=== PATIENT | male | born 1950 | race Caucasian/White ===

== ENCOUNTER 2016-07-18 15:05 | Outpatient (CLI) | payer MEDICARE ==
[2016-07-18 15:56] LABS: #Basophils 0.1 thou/uL (0.0-0.2); #Eosinphils 0.3 thou/uL (0.0-0.7); #Lymphocytes 1.2 thou/uL (1.20-3.40); #Monocytes 0.4 thou/uL (0.11-0.59); #Neutrophils 3.9 thou/uL (1.40-6.50); %Basophils 1.2 % (0.0-1.0); %Eosinophils 4.6 % (0.0-10.0); %Lymphocytes 20.9 % (21.0-51.0); %Monocytes 7.1 % (0.0-10.0); %Neutrophils 66.1 % (42.0-75.0); Hemoglobin 16.2 g/dL (14.0-18.0); Mean Corpuscular HGB CONC 34.6 g/dL (32.0-36.0); Mean Corpuscular Hemoglobin 30.8 pg (27.0-31.0); Mean Platelet Volume 11.9 fL (7.4-10.4); Platelet Count 127 thou/uL (130-400); RBC Distribution Width 13.2 % (11.5-14.5); Red Blood Cell (RBC) Count 5.26 mill/uL (4.70-6.10); White Blood Cell (WBC) Count 5.8 thou/uL (4.8-10.8)
[2016-07-18 16:09] LABS: ALT (SGPT) 38 U/L (8-55); AST (SGOT) 24 U/L (5-34); Albumin 4.1 g/dL (3.4-4.8); Alkaline Phosphatase 53 U/L (40-150); Anion Gap 14 mmol/L (10-20); BUN (Urea Nitrogen) 22 mg/dL (8.4-25.7); Bilirubin, Total 0.9 mg/dL (0.2-1.2); Calc. Creatinine Clearance 0 mL/min (70-130); Calcium 9.6 mg/dL (7.8-10.44); Carbon Dioxide 27 mmol/L (23-31); Cardiac Risk 7.9 (Less than 4.5); Chloride 105 mmol/L (98-107); Cholesterol 275 mg/dl (< 200 Desired); Estimated GFR-MDRD 45; Globulin 2.7 g/dL (2.4-3.5); Glucose 122 mg/dL (80-115); HDL Cholesterol 35 mg/dL (>60 Neg Risk); LDL Cholesterol, Calculated 203 mg/dL; Potassium 4.8 mmol/L (3.5-5.1); Protein, Total 6.8 g/dL (5.8-8.1); Sodium 141 mmol/L (136-145); Triglycerides 184 mg/dL (Less than 150)
[2016-07-18 16:11] LABS: Hemoglobin A1c 6.1 % (4.0-6.0)
[2016-07-19 19:18] LABS: Creatinine, Urine 118.47 mg/dL (63-166); Microalbumin Urine Less than 1.0 mg/dL (0.5-50.0); Microalbumin/Creat Ratio 8.4 mg/g (Less than 30)
== END 2016-07-18 15:06 | disposition home or self-care (01) ==
LOC: HPCALD 15:05
PROVIDERS: ATTEND Family Medicine
DX: E11.29 Type 2 diabetes mellitus with other diabetic kidney complication (principal)
CPT/HCPCS: 36415; 80053; 80061; 82043; 83036; 84443; 85025

== ENCOUNTER 2016-10-02 19:36 | Emergency (ER) | payer MEDICARE ==
[2016-10-02 20:12] LABS: #Basophils 0.1 thou/uL (0.0-0.2); #Eosinphils 0.2 thou/uL (0.0-0.7); #Monocytes 0.6 thou/uL (0.11-0.59); #Neutrophils 9.9 thou/uL (1.40-6.50); %Basophils 0.8 % (0.0-1.0); %Eosinophils 1.7 % (0.0-10.0); %Lymphocytes 8.1 % (21.0-51.0); %Monocytes 5.3 % (0.0-10.0); %Neutrophils 84.1 % (42.0-75.0); Hemoglobin 17.9 g/dL (14.0-18.0); Mean Corpuscular HGB CONC 33.8 g/dL (32.0-36.0); Mean Corpuscular Hemoglobin 30.7 pg (27.0-31.0); Mean Corpuscular Volume 90.8 fl (80.0-94.0); Mean Platelet Volume 11.4 fL (7.4-10.4); Platelet Count 185 thou/uL (130-400); RBC Distribution Width 13.2 % (11.5-14.5); Red Blood Cell (RBC) Count 5.84 mill/uL (4.70-6.10); White Blood Cell (WBC) Count 11.8 thou/uL (4.8-10.8)
[2016-10-02 20:20] LABS: INR-International Normal Ratio 1.2; PTT 26.4 SEC (22.9-36.1); Prothrombin Time 14.9 SEC (12.0-14.7)
[2016-10-02 20:26] LABS: ALT (SGPT) 41 U/L (8-55); AST (SGOT) 25 U/L (5-34); Albumin 4.9 g/dL (3.4-4.8); Alkaline Phosphatase 63 U/L (40-150); Anion Gap 19 mmol/L (10-20); BUN (Urea Nitrogen) 23 mg/dL (8.4-25.7); Bilirubin, Total 1.3 mg/dL (0.2-1.2); Calc. Creatinine Clearance 0 mL/min (70-130); Carbon Dioxide 23 mmol/L (23-31); Chloride 103 mmol/L (98-107); Estimated GFR-MDRD 22; Globulin 3.5 g/dL (2.4-3.5); Glucose 166 mg/dL (80-115); Lipase 22 U/L (8-78); Potassium 4.3 mmol/L (3.5-5.1); Protein, Total 8.4 g/dL (5.8-8.1); Sodium 141 mmol/L (136-145)
[2016-10-02 20:27] LABS: CKMB 2.5 ng/mL (0-6.6); Troponin I Less than 0.010 ng/mL (< 0.028)
[2016-10-02 20:29] LABS: D-Dimer Test 0.28 *mcg/mL (0.27-0.43)
--- NOTE | 2016-10-02 20:32 | RAD ---
EXAM: ONE VIEW CHEST 10/02/16 HISTORY: Syncope. COMPARISON: 10/17/11 FINDINGS: Normal cardiac silhouette. Pulmonary vessels and hilum are normal. No mass or consolidation. No pneu mothorax or osseous abnormalities. Cervical fusion hardware is noted. IMPRESSION: No acute cardiopulmonary process. POS: [facility]
--- NOTE | 2016-10-02 20:59 | CT ---
EXAM: NONCONTRAST CT HEAD 10/02/16 HISTORY: Syncope. Patient passed out. Posttraumatic pain. COMPARISON: 11/20/12 TECHNIQUE: Noncontrast head CT is performed from skull base to skull vertex. FINDINGS: No parenchymal hemorrhage. No extra-axial hematoma. No midline shift. Basilar cisterns are patent. B rain volume is age appropriate. Cortical fernandes-white matter differentiation is preserved. Ventricles and sulci are patent and symmetric. Calvarium is intact. Adequate aeration of the sinuses and mastoid air cells. IMPRESSION: No intracranial posttraumatic sequela. POS: [facility]
--- NOTE | 2016-10-02 22:08 | CT ---
EXAM: CERVICAL SPINE CT WITHOUT CONTRAST 10/02/16 HISTORY: Fall. Syncope. Posttraumatic pain. COMPARISON: 10/21/12 TECHNIQUE: A cervical spine CT is performed without contrast. reformatted images are submitted for interpretati on. FINDINGS: Redemonstration of anterior fusion plate with transvertebral body screw at C6 and C7. There is no pe rihardware lucency. There is fusion of the cervical spine at C4, C5, C6 and C7. Straightening of the normal cervical lordosis is noted. Grade I anterolisthesis of C3 upon C5 and C7 upon T1 is redemons trated. Coronal reformatted images demonstrate appropriate alignment of the lateral masses of C1 and C2. There is appropriate alignment of the intra-articular facets. Odontoid process is intact. There is no prevertebral soft tissue swelling or epidural hematoma. Varying degrees of central canal stenosis and foraminal narrowing on the basis of degenerative change. Limited evaluation by techniq ue. The visualized soft tissue neck structures, upper mediastinum and lung apices are unremarkable. Base d on the axial images, cervical spine vertebral body height is maintained. No fracture. IMPRESSION: 1. Uncomplicated cervical fusion. 2. Extensive fusion changes of the cervical spine, similar to the prior examination. 3. No cervical spine fracture. POS: [facility]
== END 2016-10-02 23:10 | disposition home or self-care (01) ==
LOC: BURERS 19:36
DX: E86.0 Dehydration (principal); R55 Syncope and collapse; E78.5 Hyperlipidemia, unspecified; I10 Essential (primary) hypertension; E11.9 Type 2 diabetes mellitus without complications; G62.9 Polyneuropathy, unspecified
CPT/HCPCS: 36416; 70450; 71010; 72125; 80053; 82553; 83605; 83690; 83880; 84484; 85025; 85379; 85610; 85730; 87040; 93005; 94760

== ENCOUNTER 2016-10-25 09:39 | Outpatient (CLI) | payer MEDICARE ==
[2016-10-25 10:33] LABS: Hemoglobin A1c 6.4 % (4.0-6.0)
[2016-10-25 10:35] LABS: ALT (SGPT) 45 U/L (8-55); AST (SGOT) 22 U/L (5-34); Albumin 4.1 g/dL (3.4-4.8); Alkaline Phosphatase 60 U/L (40-150); Anion Gap 14 mmol/L (10-20); BUN (Urea Nitrogen) 15 mg/dL (8.4-25.7); Bilirubin, Total 0.7 mg/dL (0.2-1.2); Calc. Creatinine Clearance 0 mL/min (70-130); Calcium 9.4 mg/dL (7.8-10.44); Carbon Dioxide 26 mmol/L (23-31); Cardiac Risk 7.1 (Less than 4.5); Chloride 105 mmol/L (98-107); Cholesterol 263 mg/dl (< 200 Desired); Estimated GFR-MDRD 50; Globulin 2.5 g/dL (2.4-3.5); Glucose 155 mg/dL (80-115); HDL Cholesterol 37 mg/dL (>60 Neg Risk); LDL Cholesterol, Calculated 177 mg/dL; Protein, Total 6.6 g/dL (5.8-8.1); Sodium 141 mmol/L (136-145); Triglycerides 247 mg/dL (Less than 150)
== END 2016-10-25 09:40 | disposition home or self-care (01) ==
LOC: HPCALD 09:39
PROVIDERS: ATTEND Family Medicine
DX: E11.29 Type 2 diabetes mellitus with other diabetic kidney complication (principal); E78.2 Mixed hyperlipidemia
CPT/HCPCS: 36415; 80053; 80061; 83036

== ENCOUNTER 2018-05-12 11:10 | Emergency (ER) | payer MEDICARE, OTHER ==
[2018-05-12] MEDS ORDERED: Adacel (T-DAP) 0.5 ML SYRINGE ONE (12:10)
[2018-05-12] MEDS ORDERED: Ketorolac Tromethamine 60 MG/2 ML VIAL ONE (12:10)
--- NOTE | 2018-05-12 12:10 | RAD ---
FXR Hand Lt 3 View STANDARD: 05/12/2018 11:28 AM CLINICAL INDICATION: Left hand pain COMPARISON: None. TECHNIQUE: 3 views of the left hand. Laterality: Left. FINDINGS: Bones: No acute osseous abnormality There are small subchondral cystlike abnormalities involving the proximal scaphoid, capitate and triquetrum. Joints: There are periarticular erosions involving the IP joints of the index through small finger. T here are suspected. The periarticular erosive changes involving the index and long finger metacarpal. Soft Tissue: . IMPRESSION: No acute fracture or subluxation. Scattered periarticular erosions of the left hand may reflect seque la of an underlying inflammatory arthropathy..
--- NOTE | 2018-05-12 12:12 | RAD ---
FChest AP view INDICATION: Chest pain COMPARISON: October 02, 2016 FINDINGS: The lungs are clear. The heart size is normal. No pleural effusion or pneumothorax is evide nt. No acute osseous abnormality is noted. IMPRESSION: No acute cardiopulmonary abnormality.
--- NOTE | 2018-05-12 12:38 | CT ---
CT OF BRAIN PERFORMED WITHOUT CONTRAST ENHANCEMENT: Date: 05/12/18 HISTORY: Head injury. COMPARISON: 10/02/16. FINDINGS: The ventricular and cisternal system is within normal limits. There are no signs of intracerebral hem orrhage or extra-axial fluid collections. The mastoid air cells and visualized sinuses are clear. IMPRESSION: No acute intracranial abnormality. POS: [facility]
--- NOTE | 2018-05-12 12:40 | CT ---
CT CERVICAL SPINE PERFORMED WITHOUT CONTRAST ENHANCEMENT: Date: 05/12/18 HISTORY: Neck injury. FINDINGS: The vertebral bodies are normal in height. Degenerative changes and disc narrowing are seen at C2-3 a nd C3-4. Bony fusion across the C4-5 and C5-6 levels. Anterior cervical fusion noted at C6-7. There a re degenerative changes of the C7-T1 level. Facets are in normal alignment. There is some mild left-s ided foraminal narrowing at C3-4. There is mild bilateral foraminal narrowing at C5-6. There is no CT evidence of fracture. There is some bony fusion across multiple facet joints incidentally noted, as well as between the spi nous processes. IMPRESSION: No CT evidence of fracture of the cervical spine. POS: [facility]
== END 2018-05-12 12:18 | disposition home or self-care (01) ==
LOC: BURERS 11:10
DX: S61.213A Laceration without foreign body of left middle finger without damage to nail, initial encounter (principal); S29.012A Strain of muscle and tendon of back wall of thorax, initial encounter; E11.40 Type 2 diabetes mellitus with diabetic neuropathy, unspecified; E78.2 Mixed hyperlipidemia; I10 Essential (primary) hypertension; W17.89XA Other fall from one level to another, initial encounter
CPT/HCPCS: 12001; 70450; 71045; 72125; 90471; 90715; 96374; J1885

== ENCOUNTER 2019-01-21 15:55 | Emergency (ER) | payer MEDICARE, OTHER ==
[~2019-01-21 15:55] MED LIST: Iopamidol 370 76% 100 ML VIAL ONE
[2019-01-21 16:55] LABS: #Eosinphils 0.2 thou/uL (0.0-0.7); #Lymphocytes 0.7 thou/uL (1.20-3.40); #Monocytes 0.4 thou/uL (0.11-0.59); #Neutrophils 4.7 thou/uL (1.40-6.50); %Basophils 0.5 % (0.0-1.0); %Eosinophils 3.5 % (0.0-10.0); %Lymphocytes 12.2 % (21.0-51.0); %Monocytes 6.1 % (0.0-10.0); %Neutrophils 77.7 % (42.0-75.0); Mean Corpuscular HGB CONC 33.5 g/dL (32.0-36.0); Mean Corpuscular Hemoglobin 29.3 pg (27.0-31.0); Mean Corpuscular Volume 87.4 fL (78.0-98.0); Mean Platelet Volume 10.6 fL (7.4-10.4); Platelet Count 125 thou/uL (130-400); RBC Distribution Width 12.9 % (11.5-14.5); White Blood Cell (WBC) Count 6.1 thou/uL (4.8-10.8)
[2019-01-21 17:12] LABS: ALT (SGPT) 35 U/L (8-55); AST (SGOT) 23 U/L (5-34); Albumin 4.1 g/dL (3.4-4.8); Alkaline Phosphatase 72 U/L (40-110); Anion Gap 14 mmol/L (10-20); BUN (Urea Nitrogen) 21 mg/dL (8.4-25.7); Bilirubin, Total 0.6 mg/dL (0.2-1.2); CK (CPK) 55 U/L (30-200); Calc. Creatinine Clearance 0 mL/min (70-130); Calcium 9.3 mg/dL (7.8-10.44); Carbon Dioxide 20 mmol/L (23-31); Chloride 102 mmol/L (98-107); Estimated GFR-MDRD 42; Globulin 2.9 g/dL (2.4-3.5); Glucose 479 mg/dL (80-115); Magnesium 2.4 mg/dL (1.6-2.6); Potassium 4.1 mmol/L (3.5-5.1); Sodium 132 mmol/L (136-145)
[2019-01-21 17:49] LABS: Bilirubin Negative (Negative); Blood, Urine Negative (Negative); Clarity Clear (Clear); Glucose, Urine (Dipstick) 500 mg/dL (Negative); Leukocyte Negative (Negative); Nitrite Negative (Negative); Protein, Urine (Dipstick) Negative (Neg-Trace); Urobilinogen 0.2 mg/dL (Less than 2)
[2019-01-21] MEDS ORDERED: Morphine 4 MG/ML VIAL ONE ×2 (17:50→19:09)
[2019-01-21] MEDS ORDERED: Morphine 2 MG/ML SYRINGE ONE (17:50)
[2019-01-21] MEDS ORDERED: Insulin Regular 300 UNITS/3 ML VIAL ONE (17:50)
[2019-01-21] MEDS ORDERED: Ondansetron PF 4 MG/2 ML Vial ONE (19:09)
--- NOTE | 2019-01-21 19:45 | RAD ---
AP PORTABLE CHEST: 01/21/2019 1649 HOURS COMPARISON: 05/12/2018 FINDINGS: There has been no adverse interval change. The heart is normal in size and the lungs are clear. There is no vascular congestion, edema or pleural effusion. IMPRESSION: No acute findings. POS: [facility]
--- NOTE | 2019-01-21 20:31 | CT ---
CT ANGIO CHEST AND ABDOMEN (CT AORTIC DISSECTION): 01/21/2019 TECHNIQUE: A spiral CT of the abdomen and chest was done after an injection of IV contrast. The total amount was limited due to a low GFR. Axial slices were acquired followed by MIP reconstructions in various plan es. FINDINGS: There is no sign of aortic dissection or aneurysm. Some faint lines seen in the ascending aorta aroun d scan 50 of the axials appears to be artifact. There is calcification in the aorta and in the willett ry vessels, particularly the left coronary system. There is no sign of pericardial effusion. No media stinal mass or adenopathy is seen. The lungs are clear except for some dependent atelectasis. There a re no effusion. The abdominal aorta showed filling of the celiac, SMA and OG. Both renal arteries fill normally. The liver, spleen, pancreas, adrenal glands and kidneys are unremarkable. There has been a prior cholecy stectomy. Extensive degenerative changes are seen in the patient's spine with an epidural stimulator lead seen at multiple levels. IMPRESSION: 1. No evidence of aortic aneurysm or dissection. 2. Coronary arteriosclerosis. 3. No acute findings otherwise. Findings discussed with Dr. Ornelas at 2016 hours on 01/21/2019. CODE CR POS: [facility]
== END 2019-01-21 20:43 | disposition home or self-care (01) ==
LOC: BURERS 15:55
DX: E11.65 Type 2 diabetes mellitus with hyperglycemia (principal); R10.13 Epigastric pain; E11.40 Type 2 diabetes mellitus with diabetic neuropathy, unspecified; E78.1 Pure hyperglyceridemia; I10 Essential (primary) hypertension; E78.5 Hyperlipidemia, unspecified
CPT/HCPCS: 36416; 71045; 71275; 72191; 74175; 80053; 81003; 82550; 83690; 83735; 84484; 85025; 93005; 96361; 96374; 96375; 96376; J1815; J2270; J2405; Q9967

== ENCOUNTER 2020-07-27 19:40 | Emergency (ER) | payer MEDICARE, OTHER ==
[2020-07-27] MEDS ORDERED: Ondansetron PF 4 MG/2 ML Vial ONE (20:11)
[2020-07-27] MEDS ORDERED: Nitroglycerin 2% Ointment 1 INCH/1 GM Packet ONE (20:11)
[2020-07-27] MEDS ORDERED: Fentanyl 100 MCG/2 ML VIAL ONE ×3 (20:11→21:56)
[2020-07-27 20:14] LABS: #Eosinphils 0.1 thou/uL (0.0-0.7); #Lymphocytes 0.6 thou/uL (1.20-3.40); #Monocytes 0.4 thou/uL (0.11-0.59); #Neutrophils 4.1 thou/uL (1.40-6.50); %Basophils 0.8 % (0.0-1.0); %Eosinophils 2.8 % (0.0-10.0); %Lymphocytes 10.9 % (21.0-51.0); %Monocytes 7.9 % (0.0-10.0); %Neutrophils 77.6 % (42.0-75.0); Hemoglobin 12.8 g/dL (14.0-18.0); Mean Corpuscular Hemoglobin 26.9 pg (27.0-31.0); Mean Platelet Volume 12.4 fL (7.4-10.4); Platelet Count 153 thou/uL (130-400); RBC Distribution Width 14.5 % (11.5-14.5); Red Blood Cell (RBC) Count 4.75 mill/uL (4.70-6.10); White Blood Cell (WBC) Count 5.2 thou/uL (4.8-10.8)
[2020-07-27 20:19] LABS: ALT (SGPT) 36 U/L (8-55); AST (SGOT) 32 U/L (5-34); Albumin 4.1 g/dL (3.4-4.8); Alkaline Phosphatase 92 U/L (40-110); Anion Gap 18 mmol/L (10-20); BUN (Urea Nitrogen) 17 mg/dL (8.4-25.7); Bilirubin, Total 0.9 mg/dL (0.2-1.2); Calc. Creatinine Clearance 0 mL/min (70-130); Calcium 9.9 mg/dL (7.8-10.44); Carbon Dioxide 26 mmol/L (23-31); Chloride 101 mmol/L (98-107); Globulin 3.5 g/dL (2.4-3.5); Glucose 130 mg/dL (80-115); Potassium 4.2 mmol/L (3.5-5.1); Protein, Total 7.6 g/dL (5.8-8.1); Sodium 141 mmol/L (136-145)
[2020-07-27 20:54] LABS: Platelet Morphology Comment Appears Adequate
[2020-07-27] MEDS ORDERED: Lorazepam 2 MG/ML VIAL ONE (21:13)
== END 2020-07-27 22:05 | disposition short-term general hospital (02) ==
LOC: BURERS 19:40
DX: I20.0 Unstable angina (principal); E11.40 Type 2 diabetes mellitus with diabetic neuropathy, unspecified; E78.5 Hyperlipidemia, unspecified; I10 Essential (primary) hypertension; Z79.899 Other long term (current) drug therapy
CPT/HCPCS: 71045; 80053; 83605; 83880; 84484; 85025; 93005; 96374; 96375; 96376; J2060; J2405; J3010

== ENCOUNTER 2020-09-27 20:03 | Emergency (ER) | payer MEDICARE, OTHER ==
[2020-09-27] MEDS ORDERED: Fentanyl 100 MCG/2 ML VIAL ONE ×4 (20:26→22:53)
[2020-09-27] MEDS ORDERED: Ondansetron PF 4 MG/2 ML Vial ONE (20:27)
[2020-09-27] MEDS ORDERED: Nitroglycerin 0.4 MG TAB 1 EACH ONE (20:27)
[2020-09-27 20:33] LABS: Hemoglobin 14.4 g/dL (14.0-18.0); Mean Corpuscular HGB CONC 31.6 g/dL (32.0-36.0); Mean Corpuscular Volume 79.2 fL (78.0-98.0); Mean Platelet Volume 12.8 fL (7.4-10.4); Platelet Count 144 thou/uL (130-400); Red Blood Cell (RBC) Count 5.77 mill/uL (4.70-6.10); White Blood Cell (WBC) Count 6.4 thou/uL (4.8-10.8)
[2020-09-27] MEDS ORDERED: Nitroglycerin 50 MG/250 ML BOT 250 ML ONE (21:18)
[2020-09-27 22:10] LABS: ALT (SGPT) 36 U/L (8-55); AST (SGOT) 23 U/L (5-34); Albumin 4.1 g/dL (3.4-4.8); Alkaline Phosphatase 69 U/L (40-110); Anion Gap 17 mmol/L (10-20); BUN (Urea Nitrogen) 40 mg/dL (8.4-25.7); Bilirubin, Total 0.5 mg/dL (0.2-1.2); Calc. Creatinine Clearance 0 mL/min (70-130); Calcium 9.5 mg/dL (7.8-10.44); Carbon Dioxide 26 mmol/L (23-31); Chloride 101 mmol/L (98-107); Globulin 3.4 g/dL (2.4-3.5); Glucose 128 mg/dL (80-115); Lipase 45 U/L (8-78); Potassium 4.2 mmol/L (3.5-5.1); Protein, Total 7.5 g/dL (5.8-8.1); Sodium 140 mmol/L (136-145)
[2020-09-27 22:21] LABS: Band 4 % (5-11); Eosinophils 1 % (0-10); Lymphocytes 22 % (21-51); MDiff Complete? YES; Monocytes 10 % (0-10); Neutrophil 62 % (42-75); Platelet Morphology Comment Appears Adequate; RBC Morphology Normal
[2020-09-27 23:53] LABS: SARS-CoV-2 NAA Rapid Test Not Detected (NotDetected)
== END 2020-09-27 23:40 | disposition short-term general hospital (02) ==
LOC: BURERS 20:03
DX: I20.9 Angina pectoris, unspecified (principal); F41.9 Anxiety disorder, unspecified; Z20.822 Contact with and (suspected) exposure to COVID-19; I10 Essential (primary) hypertension; E11.40 Type 2 diabetes mellitus with diabetic neuropathy, unspecified; E78.5 Hyperlipidemia, unspecified; Z79.899 Other long term (current) drug therapy
CPT/HCPCS: 71045; 80053; 83690; 83880; 84484; 85025; 85379; 93005; 94760; U0002; 96374; 96375; 96376; J2405; J3010

== ENCOUNTER 2021-05-14 14:22 | Emergency (ER) | payer MEDICARE, OTHER ==
[2021-05-14] MEDS ORDERED: Nitroglycerin 0.4 MG TAB 1 EACH ONE (14:34)
[2021-05-14] MEDS ORDERED: Aspirin Chewable 81 MG TAB ONE (14:34)
[2021-05-14] MEDS ORDERED: Morphine 4 MG/ML VIAL ONE ×2 (14:50→15:26)
[2021-05-14 14:57] LABS: #Basophils 0.1 thou/uL (0.0-0.2); #Eosinphils 0.1 thou/uL (0.0-0.7); #Lymphocytes 0.5 thou/uL (1.20-3.40); #Monocytes 0.5 thou/uL (0.11-0.59); #Neutrophils 6.5 thou/uL (1.40-6.50); %Basophils 0.8 % (0.0-1.0); %Eosinophils 0.7 % (0.0-10.0); %Lymphocytes 6.6 % (21.0-51.0); %Monocytes 6.6 % (0.0-10.0); %Neutrophils 85.2 % (42.0-75.0); Hemoglobin 11.7 g/dL (14.0-18.0); Mean Corpuscular HGB CONC 33.9 g/dL (32.0-36.0); Mean Corpuscular Volume 94.5 fL (78.0-98.0); Mean Platelet Volume 9.8 fL (7.4-10.4); Platelet Count 161 thou/uL (130-400); RBC Distribution Width 16.4 % (11.5-14.5); Red Blood Cell (RBC) Count 3.64 mill/uL (4.70-6.10); White Blood Cell (WBC) Count 7.6 thou/uL (4.8-10.8)
[2021-05-14 15:00] LABS: PTT 28.7 sec (22.9-36.1); Prothrombin Time 13.6 sec (12.0-14.7)
[2021-05-14 15:08] LABS: ALT (SGPT) 58 U/L (8-55); AST (SGOT) 25 U/L (5-34); Albumin 3.7 g/dL (3.4-4.8); Alkaline Phosphatase 55 U/L (40-110); Anion Gap 16 mmol/L (10-20); BUN (Urea Nitrogen) 17 mg/dL (8.4-25.7); Bilirubin, Total 1.1 mg/dL (0.2-1.2); Calc. Creatinine Clearance 0 mL/min (70-130); Calcium 8.8 mg/dL (7.8-10.44); Carbon Dioxide 24 mmol/L (23-31); Chloride 104 mmol/L (98-107); Globulin 2.5 g/dL (2.4-3.5); Glucose 306 mg/dL (80-115); Potassium 4.2 mmol/L (3.5-5.1); Protein, Total 6.2 g/dL (5.8-8.1); Sodium 140 mmol/L (136-145)
[2021-05-14] MEDS ORDERED: Fentanyl 100 MCG/2 ML VIAL ONE ×2 (16:29→18:17)
[2021-05-14 17:35] LABS: SARS-CoV-2 NAA Rapid Test Not Detected (NotDetected)
== END 2021-05-14 18:22 | disposition short-term general hospital (02) ==
LOC: BURERS 14:22
DX: R07.2 Precordial pain (principal); Z20.822 Contact with and (suspected) exposure to COVID-19; I12.9 Hypertensive chronic kidney disease with stage 1 through stage 4 chronic kidney disease, or unspecified chronic kidney disease; E11.22 Type 2 diabetes mellitus with diabetic chronic kidney disease; N18.9 Chronic kidney disease, unspecified; E11.40 Type 2 diabetes mellitus with diabetic neuropathy, unspecified; E78.5 Hyperlipidemia, unspecified; G25.81 Restless legs syndrome; Z95.5 Presence of coronary angioplasty implant and graft; Z79.899 Other long term (current) drug therapy; Z79.01 Long term (current) use of anticoagulants; Z79.52 Long term (current) use of systemic steroids
CPT/HCPCS: 36415; 71045; 80053; 83880; 84484; 85025; 85610; 85730; 93005; 94760; 96374; 96375; 96376; J2270; J3010; U0002

== ENCOUNTER 2021-05-28 03:50 | Emergency (ER) | payer MEDICARE, OTHER ==
[2021-05-28] MEDS ORDERED: Aspirin Chewable 81 MG TAB ONE (04:30)
[2021-05-28] MEDS ORDERED: Nitroglycerin 0.4 MG TAB 1 EACH ONE (04:30)
[2021-05-28 04:39] LABS: #Basophils 0.1 thou/uL (0.0-0.2); #Eosinphils 0.2 thou/uL (0.0-0.7); #Lymphocytes 1.6 thou/uL (1.20-3.40); #Monocytes 0.6 thou/uL (0.11-0.59); #Neutrophils 5.2 thou/uL (1.40-6.50); %Basophils 1.5 % (0.0-1.0); %Eosinophils 2.3 % (0.0-10.0); %Monocytes 7.8 % (0.0-10.0); %Neutrophils 67.4 % (42.0-75.0); Mean Corpuscular HGB CONC 33.6 g/dL (32.0-36.0); Mean Corpuscular Hemoglobin 31.3 pg (27.0-31.0); Mean Corpuscular Volume 93.1 fL (78.0-98.0); Mean Platelet Volume 10.6 fL (7.4-10.4); Platelet Count 181 thou/uL (130-400); RBC Distribution Width 15.6 % (11.5-14.5); White Blood Cell (WBC) Count 7.7 thou/uL (4.8-10.8)
[2021-05-28 04:49] LABS: ALT (SGPT) 124 U/L (8-55); AST (SGOT) 61 U/L (5-34); Albumin 3.9 g/dL (3.4-4.8); Alkaline Phosphatase 65 U/L (40-110); Anion Gap 15 mmol/L (10-20); BUN (Urea Nitrogen) 16 mg/dL (8.4-25.7); Bilirubin, Total 1.1 mg/dL (0.2-1.2); Calc. Creatinine Clearance 0 mL/min (70-130); Calcium 9.1 mg/dL (7.8-10.44); Carbon Dioxide 28 mmol/L (23-31); Chloride 104 mmol/L (98-107); Globulin 2.4 g/dL (2.4-3.5); Glucose 99 mg/dL (80-115); Potassium 4.5 mmol/L (3.5-5.1); Protein, Total 6.3 g/dL (5.8-8.1); Sodium 142 mmol/L (136-145)
[2021-05-28] MEDS ORDERED: Morphine 4 MG/ML VIAL ONE ×3 (05:02→08:59)
[2021-05-28] MEDS ORDERED: Ondansetron PF 4 MG/2 ML Vial ONE (06:01)
[2021-05-28] MEDS ORDERED: methylPREDNISolone Sod Succ/PF 125 MG/2 ML VIAL ONE (08:15)
[2021-05-28 10:10] LABS: SARS-CoV-2 NAA Rapid Test Not Detected (NotDetected)
== END 2021-05-28 09:30 | disposition short-term general hospital (02) ==
LOC: BURERS 03:50
DX: R07.9 Chest pain, unspecified (principal); E11.40 Type 2 diabetes mellitus with diabetic neuropathy, unspecified; E78.5 Hyperlipidemia, unspecified; I13.10 Hypertensive heart and chronic kidney disease without heart failure, with stage 1 through stage 4 chronic kidney disease, or unspecified chronic kidney disease; E11.22 Type 2 diabetes mellitus with diabetic chronic kidney disease; N18.9 Chronic kidney disease, unspecified; Z20.822 Contact with and (suspected) exposure to COVID-19; Z79.01 Long term (current) use of anticoagulants; Z79.899 Other long term (current) drug therapy
CPT/HCPCS: 36415; 71045; 80053; 83880; 84484; 85025; 93005; 94760; 96374; 96375; 96376; J2270; J2405; J2930; U0002

== ENCOUNTER 2021-08-09 03:52 | Emergency (ER) | payer MEDICARE, OTHER ==
[2021-08-09] MEDS ORDERED: methylPREDNISolone Sod Succ/PF 125 MG/2 ML VIAL ONE (04:20)
[2021-08-09] MEDS ORDERED: Diphenoxylate HCl/Atropine Tablet ONE ×2 (04:27→04:28)
== END 2021-08-09 04:52 | disposition home or self-care (01) ==
LOC: BURERS 03:52
DX: M54.16 Radiculopathy, lumbar region (principal); E11.40 Type 2 diabetes mellitus with diabetic neuropathy, unspecified; E78.5 Hyperlipidemia, unspecified; E11.22 Type 2 diabetes mellitus with diabetic chronic kidney disease; I12.9 Hypertensive chronic kidney disease with stage 1 through stage 4 chronic kidney disease, or unspecified chronic kidney disease; N18.9 Chronic kidney disease, unspecified
CPT/HCPCS: J2930

== ENCOUNTER 2021-08-09 09:39 | Inpatient (IN) | payer MEDICARE, OTHER ==
[2021-08-09] MEDS ORDERED: Nitroglycerin 0.4 MG TAB (25 Tab Bottle) SL PRN (13:01)
[2021-08-09] MEDS ORDERED: Dextrose 50% Abboject 50 ML SYRINGE SLOW IVP PRN (13:05)
[2021-08-09] MEDS ORDERED: Dextrose 5% in Water 1,000 ML IV PRN (13:05)
[2021-08-09] MEDS: glipiZIDE 5 MG TAB PO SCH (18:05)
[2021-08-09] MEDS: HumaLOG 300 UNITS/3 ML VIAL SC PRN (18:05)
[2021-08-09] MEDS ORDERED: Acetaminophen 325 MG Suppository PR PRN (19:16)
[2021-08-09] MEDS ORDERED: Calcium Carbonate 500 MG ChewTAB PO PRN (19:18)
[2021-08-09] MEDS ORDERED: Senokot S 8.6-50 MG TAB PO PRN (19:19)
[2021-08-09] MEDS ORDERED: Bisacodyl 5 MG TAB PO PRN (19:19)
[2021-08-09] MEDS ORDERED: Gabapentin 100 MG CAP PO SCH (21:00)
[2021-08-09] MEDS: Colchicine 0.6 MG TAB PO SCH (21:01)
[2021-08-09] MEDS: ALPRAZolam 0.5 MG TAB PO PRN (21:01)
[2021-08-09] MEDS: Carvedilol 3.125 MG TAB PO SCH (21:01)
[2021-08-09] MEDS: Apixaban 2.5 MG TAB PO SCH (21:02)
[2021-08-09] MEDS: Gabapentin 100 MG CAP PO SCH (21:02)
[2021-08-09] MEDS: Temazepam 15 MG CAP PO PRN (21:11)
[2021-08-09] MEDS: traMADol HCl 50 MG TAB PO PRN (23:54)
[2021-08-10] MEDS: Acetaminophen 325 MG TAB PO PRN ×4 (03:18→16:54)
[2021-08-10] MEDS: HumaLOG 300 UNITS/3 ML VIAL SC PRN ×3 (08:09→17:13)
[2021-08-10] MEDS: Apixaban 2.5 MG TAB PO SCH ×2 (08:10→21:03)
[2021-08-10] MEDS: Carvedilol 3.125 MG TAB PO SCH ×2 (08:10→21:03)
[2021-08-10] MEDS: Atorvastatin Calcium 40 MG TAB PO SCH (08:10)
[2021-08-10] MEDS: glipiZIDE 5 MG TAB PO SCH ×2 (08:10→16:51)
[2021-08-10] MEDS: Amiodarone 200 MG TAB PO SCH (08:10)
[2021-08-10] MEDS: predniSONE 5 MG TAB PO SCH (08:10)
[2021-08-10] MEDS: Multivitamin W/ Minerals 1 TAB PO SCH (08:10)
[2021-08-10] MEDS: Aspirin Chewable 81 MG TAB PO SCH (08:10)
[2021-08-10] MEDS: Citalopram 20 MG TAB PO SCH (08:11)
[2021-08-10] MEDS: Gabapentin 100 MG CAP PO SCH ×2 (08:11→21:01)
[2021-08-10] MEDS: Clopidogrel Bisulfate 75 MG TAB PO SCH (08:11)
[2021-08-10] MEDS: Colchicine 0.6 MG TAB PO SCH ×2 (08:11→21:03)
[2021-08-10] MEDS: Furosemide 20 MG TAB PO SCH (08:11)
[2021-08-10] MEDS: traMADol HCl 50 MG TAB PO PRN ×2 (08:23→16:51)
[2021-08-10] MEDS ORDERED: Insulin Regular 300 UNITS/3 ML VIAL SC PRN (14:00)
[2021-08-10] MEDS ORDERED: HumaLOG 300 UNITS/3 ML VIAL SC PRN (14:30)
[2021-08-10] MEDS: Temazepam 15 MG CAP PO PRN (21:02)
[2021-08-10] MEDS: Nystatin Cream 15 GM TUBE TOP SCH (21:03)
[2021-08-10] MEDS: ALPRAZolam 0.5 MG TAB PO PRN (21:06)
[2021-08-11] MEDS: traMADol HCl 50 MG TAB PO PRN ×3 (00:54→16:18)
[2021-08-11] MEDS: Acetaminophen 325 MG TAB PO PRN ×3 (00:54→12:07)
[2021-08-11 06:01] LABS: Hemoglobin 10.3 g/dL (14.0-18.0); Platelet Count 135 thou/uL (130-400)
[2021-08-11] MEDS: Carvedilol 3.125 MG TAB PO SCH ×2 (08:12→21:23)
[2021-08-11] MEDS: Aspirin Chewable 81 MG TAB PO SCH (08:12)
[2021-08-11] MEDS: Multivitamin W/ Minerals 1 TAB PO SCH (08:12)
[2021-08-11] MEDS: glipiZIDE 5 MG TAB PO SCH ×2 (08:12→17:22)
[2021-08-11] MEDS: Furosemide 20 MG TAB PO SCH (08:12)
[2021-08-11] MEDS: Amiodarone 200 MG TAB PO SCH (08:13)
[2021-08-11] MEDS: Atorvastatin Calcium 40 MG TAB PO SCH (08:13)
[2021-08-11] MEDS: Gabapentin 100 MG CAP PO SCH ×2 (08:13→21:23)
[2021-08-11] MEDS: Colchicine 0.6 MG TAB PO SCH ×2 (08:13→21:23)
[2021-08-11] MEDS: Clopidogrel Bisulfate 75 MG TAB PO SCH (08:13)
[2021-08-11] MEDS: Citalopram 20 MG TAB PO SCH (08:13)
[2021-08-11] MEDS: Apixaban 2.5 MG TAB PO SCH ×2 (08:13→21:23)
[2021-08-11] MEDS: predniSONE 5 MG TAB PO SCH (08:13)
[2021-08-11] MEDS: Nystatin Cream 15 GM TUBE TOP SCH ×2 (08:15→21:27)
[2021-08-11] MEDS: Ondansetron ODT 4 MG TAB PO PRN ×2 (12:07→18:15)
[2021-08-11] MEDS: HumaLOG 300 UNITS/3 ML VIAL SC PRN ×2 (12:07→17:22)
[2021-08-11] MEDS: ALPRAZolam 0.5 MG TAB PO PRN (17:22)
[2021-08-11] MEDS: Temazepam 15 MG CAP PO PRN (21:24)
[2021-08-11] MEDS ORDERED: Loperamide HCl 2 MG CAP PO SCH (23:59)
[2021-08-12] MEDS: traMADol HCl 50 MG TAB PO PRN ×3 (00:19→21:59)
[2021-08-12] MEDS: Ondansetron ODT 4 MG TAB PO PRN (00:19)
[2021-08-12] MEDS: Acetaminophen 325 MG TAB PO PRN ×4 (00:19→21:58)
[2021-08-12] MEDS ORDERED: Loperamide HCl 2 MG CAP PO SCH (07:45)
[2021-08-12] MEDS: predniSONE 5 MG TAB PO SCH (09:05)
[2021-08-12] MEDS: Amiodarone 200 MG TAB PO SCH (09:05)
[2021-08-12] MEDS: Apixaban 2.5 MG TAB PO SCH ×2 (09:05→21:54)
[2021-08-12] MEDS: Multivitamin W/ Minerals 1 TAB PO SCH (09:05)
[2021-08-12] MEDS: Atorvastatin Calcium 40 MG TAB PO SCH (09:05)
[2021-08-12] MEDS: glipiZIDE 5 MG TAB PO SCH ×2 (09:06→16:01)
[2021-08-12] MEDS: Carvedilol 3.125 MG TAB PO SCH ×2 (09:06→21:53)
[2021-08-12] MEDS: Furosemide 20 MG TAB PO SCH (09:06)
[2021-08-12] MEDS: Citalopram 20 MG TAB PO SCH (09:07)
[2021-08-12] MEDS: Aspirin Chewable 81 MG TAB PO SCH (09:07)
[2021-08-12] MEDS: Clopidogrel Bisulfate 75 MG TAB PO SCH (09:07)
[2021-08-12] MEDS: Nystatin Cream 15 GM TUBE TOP SCH ×2 (09:08→23:29)
[2021-08-12] MEDS: Colchicine 0.6 MG TAB PO SCH ×2 (09:12→21:53)
[2021-08-12] MEDS: Gabapentin 100 MG CAP PO SCH ×2 (09:13→21:53)
[2021-08-12] MEDS: ALPRAZolam 0.5 MG TAB PO PRN (14:34)
[2021-08-12] MEDS: HumaLOG 300 UNITS/3 ML VIAL SC PRN (17:53)
[2021-08-12] MEDS: Loperamide HCl 2 MG CAP PO PRN (17:57)
[2021-08-12] MEDS: Temazepam 15 MG CAP PO PRN (21:59)
[2021-08-13] MEDS: Ondansetron ODT 4 MG TAB PO PRN (09:28)
[2021-08-13] MEDS: Citalopram 20 MG TAB PO SCH (09:29)
[2021-08-13] MEDS: Atorvastatin Calcium 40 MG TAB PO SCH (09:30)
[2021-08-13] MEDS: predniSONE 5 MG TAB PO SCH (09:30)
[2021-08-13] MEDS: glipiZIDE 5 MG TAB PO SCH ×2 (09:30→16:19)
[2021-08-13] MEDS: Amiodarone 200 MG TAB PO SCH (09:30)
[2021-08-13] MEDS: Multivitamin W/ Minerals 1 TAB PO SCH (09:30)
[2021-08-13] MEDS: Clopidogrel Bisulfate 75 MG TAB PO SCH (09:31)
[2021-08-13] MEDS: Aspirin Chewable 81 MG TAB PO SCH (09:31)
[2021-08-13] MEDS: Apixaban 2.5 MG TAB PO SCH ×2 (09:31→21:26)
[2021-08-13] MEDS: Carvedilol 3.125 MG TAB PO SCH ×2 (09:31→21:26)
[2021-08-13] MEDS: Furosemide 20 MG TAB PO SCH (09:31)
[2021-08-13] MEDS: Loperamide HCl 2 MG CAP PO PRN ×2 (09:32→22:30)
[2021-08-13] MEDS: Colchicine 0.6 MG TAB PO SCH ×2 (09:32→21:25)
[2021-08-13] MEDS: Gabapentin 100 MG CAP PO SCH ×2 (09:32→21:49)
[2021-08-13] MEDS: Nystatin Cream 15 GM TUBE TOP SCH ×2 (09:34→22:38)
[2021-08-13] MEDS: Acetaminophen 325 MG TAB PO PRN ×3 (09:41→22:32)
[2021-08-13] MEDS: traMADol HCl 50 MG TAB PO PRN ×3 (09:42→22:30)
[2021-08-13] MEDS: HumaLOG 300 UNITS/3 ML VIAL SC PRN (12:32)
[2021-08-13] MEDS: ALPRAZolam 0.5 MG TAB PO PRN (19:45)
[2021-08-13] MEDS: Temazepam 15 MG CAP PO PRN (21:46)
[2021-08-14] MEDS: Acetaminophen 325 MG TAB PO PRN ×3 (04:33→21:30)
[2021-08-14] MEDS: traMADol HCl 50 MG TAB PO PRN ×3 (04:34→21:28)
[2021-08-14] MEDS: Ondansetron ODT 4 MG TAB PO PRN ×2 (08:16→13:53)
[2021-08-14] MEDS: Loperamide HCl 2 MG CAP PO PRN ×2 (08:20→21:46)
[2021-08-14] MEDS: Citalopram 20 MG TAB PO SCH (10:07)
[2021-08-14] MEDS: Multivitamin W/ Minerals 1 TAB PO SCH (10:08)
[2021-08-14] MEDS: glipiZIDE 5 MG TAB PO SCH ×2 (10:08→16:29)
[2021-08-14] MEDS: Colchicine 0.6 MG TAB PO SCH ×2 (10:09→21:31)
[2021-08-14] MEDS: Apixaban 2.5 MG TAB PO SCH ×2 (10:09→21:27)
[2021-08-14] MEDS: Furosemide 20 MG TAB PO SCH (10:09)
[2021-08-14] MEDS: Aspirin Chewable 81 MG TAB PO SCH (10:09)
[2021-08-14] MEDS: predniSONE 5 MG TAB PO SCH (10:09)
[2021-08-14] MEDS: Amiodarone 200 MG TAB PO SCH (10:09)
[2021-08-14] MEDS: Carvedilol 3.125 MG TAB PO SCH ×2 (10:09→21:28)
[2021-08-14] MEDS: Atorvastatin Calcium 40 MG TAB PO SCH (10:10)
[2021-08-14] MEDS: Clopidogrel Bisulfate 75 MG TAB PO SCH (10:10)
[2021-08-14] MEDS: Gabapentin 100 MG CAP PO SCH ×2 (10:10→21:27)
[2021-08-14] MEDS: Nystatin Cream 15 GM TUBE TOP SCH ×2 (10:14→21:37)
[2021-08-14] MEDS ORDERED: Furosemide 20 MG TAB PO SCH (11:00)
[2021-08-14] MEDS: ALPRAZolam 0.5 MG TAB PO PRN (16:22)
[2021-08-14] MEDS: Temazepam 15 MG CAP PO PRN (21:27)
[2021-08-14] MEDS: Furosemide 40 MG TAB PO SCH (21:30)
[2021-08-15] MEDS: traMADol HCl 50 MG TAB PO PRN ×3 (03:56→21:20)
[2021-08-15] MEDS: Acetaminophen 325 MG TAB PO PRN ×3 (03:58→21:19)
[2021-08-15] MEDS: Loperamide HCl 2 MG CAP PO PRN ×3 (08:27→21:24)
[2021-08-15] MEDS: Ondansetron ODT 4 MG TAB PO PRN (08:28)
[2021-08-15] MEDS: Colchicine 0.6 MG TAB PO SCH ×2 (09:21→21:15)
[2021-08-15] MEDS: predniSONE 5 MG TAB PO SCH (09:21)
[2021-08-15] MEDS: Furosemide 40 MG TAB PO SCH ×2 (09:21→21:16)
[2021-08-15] MEDS: Citalopram 20 MG TAB PO SCH (09:21)
[2021-08-15] MEDS: Clopidogrel Bisulfate 75 MG TAB PO SCH (09:22)
[2021-08-15] MEDS: Atorvastatin Calcium 40 MG TAB PO SCH (09:22)
[2021-08-15] MEDS: Multivitamin W/ Minerals 1 TAB PO SCH (09:22)
[2021-08-15] MEDS: Aspirin Chewable 81 MG TAB PO SCH (09:22)
[2021-08-15] MEDS: Amiodarone 200 MG TAB PO SCH (09:22)
[2021-08-15] MEDS: Carvedilol 3.125 MG TAB PO SCH ×2 (09:22→21:16)
[2021-08-15] MEDS: glipiZIDE 5 MG TAB PO SCH ×2 (09:22→17:11)
[2021-08-15] MEDS: Apixaban 2.5 MG TAB PO SCH ×2 (09:22→21:16)
[2021-08-15] MEDS: Gabapentin 100 MG CAP PO SCH ×2 (09:23→21:15)
[2021-08-15] MEDS: Nystatin Cream 15 GM TUBE TOP SCH ×2 (09:33→21:16)
[2021-08-15] MEDS: ALPRAZolam 0.5 MG TAB PO PRN (13:54)
[2021-08-15] MEDS ORDERED: Meclizine HCl 25 MG TAB PO PRN (14:51)
[2021-08-15 15:54] LABS: Bilirubin Negative (Negative); Blood, Urine Negative (Negative); Clarity Clear (Clear); Glucose, Urine (Dipstick) Negative (Negative); Ketone, Urine Negative (Negative); Leukocyte Negative (Negative); Nitrite Negative (Negative); Protein, Urine (Dipstick) Negative (Neg-Trace); Urobilinogen 0.2 mg/dL (Less than 2)
[2021-08-15 15:56] LABS: Urine Culture Reflex No No
[2021-08-15 16:05] LABS: Amphetamine Not Detected (NotDetected); Barbiturates Screen Not Detected (NotDetected); Benzodiazepine Screen Detected (NotDetected); Cocaine Metabolite Screen Not Detected (NotDetected); Methadone Not Detected (NotDetected); Methamphetamine Not Detected (NotDetected); Opiate Screen Not Detected (NotDetected); Oxycodone Screen Not Detected (NotDetected); Phencyclidine (PCP) Not Detected (NotDetected); THC/Cannabinoid Screen Not Detected (NotDetected); Tricyclic Screen Not Detected (NotDetected)
[2021-08-15 16:06] LABS: Bacteria/HPF None Seen HPF (None Seen); Medtox Control Line Valid? VALID (VALID); RBC/HPF 0-3 HPF (0-3); Squamous Epithelial 0-3 HPF (0-3); WBC/HPF None Seen HPF (0-3)
[2021-08-15] MEDS: Temazepam 15 MG CAP PO PRN (21:24)
[2021-08-16] MEDS: traMADol HCl 50 MG TAB PO PRN ×3 (04:02→19:23)
[2021-08-16] MEDS: Acetaminophen 325 MG TAB PO PRN ×3 (04:03→19:24)
[2021-08-16] MEDS: Ondansetron ODT 4 MG TAB PO PRN (08:08)
[2021-08-16] MEDS: Loperamide HCl 2 MG CAP PO PRN (09:33)
[2021-08-16] MEDS: Multivitamin W/ Minerals 1 TAB PO SCH (09:33)
[2021-08-16] MEDS: Carvedilol 3.125 MG TAB PO SCH ×2 (09:33→20:19)
[2021-08-16] MEDS: Aspirin Chewable 81 MG TAB PO SCH (09:34)
[2021-08-16] MEDS: Citalopram 20 MG TAB PO SCH (09:34)
[2021-08-16] MEDS: predniSONE 5 MG TAB PO SCH (09:34)
[2021-08-16] MEDS: Apixaban 2.5 MG TAB PO SCH ×2 (09:34→20:19)
[2021-08-16] MEDS: Amiodarone 200 MG TAB PO SCH (09:34)
[2021-08-16] MEDS: Colchicine 0.6 MG TAB PO SCH ×2 (09:34→20:18)
[2021-08-16] MEDS: Furosemide 40 MG TAB PO SCH ×2 (09:34→20:19)
[2021-08-16] MEDS: Clopidogrel Bisulfate 75 MG TAB PO SCH (09:35)
[2021-08-16] MEDS: Gabapentin 100 MG CAP PO SCH ×2 (09:35→20:18)
[2021-08-16] MEDS: glipiZIDE 5 MG TAB PO SCH ×2 (09:35→17:17)
[2021-08-16] MEDS: Nystatin Cream 15 GM TUBE TOP SCH ×2 (09:36→20:21)
[2021-08-16] MEDS ORDERED: Diphenoxylate HCl/Atropine Tablet ONE ×2 (12:25→20:12)
[2021-08-16] MEDS: Diphenoxylate HCl/Atropine Tablet PO PRN ×2 (12:28→20:19)
[2021-08-16] MEDS: ALPRAZolam 0.5 MG TAB PO PRN (17:22)
[2021-08-16] MEDS: Atorvastatin Calcium 40 MG TAB PO SCH (20:19)
[2021-08-16] MEDS: Temazepam 15 MG CAP PO PRN (20:21)
[2021-08-17] MEDS: Acetaminophen 325 MG TAB PO PRN ×4 (02:34→21:31)
[2021-08-17] MEDS: traMADol HCl 50 MG TAB PO PRN ×4 (02:35→21:29)
[2021-08-17] MEDS ORDERED: Diphenoxylate HCl/Atropine Tablet ONE ×3 (02:39→15:21)
[2021-08-17] MEDS: Diphenoxylate HCl/Atropine Tablet PO PRN ×4 (02:41→21:32)
[2021-08-17] MEDS: Ondansetron ODT 4 MG TAB PO PRN ×4 (04:18→21:31)
[2021-08-17] MEDS: Nystatin Cream 15 GM TUBE TOP SCH ×2 (09:21→21:13)
[2021-08-17] MEDS: Apixaban 2.5 MG TAB PO SCH ×2 (09:22→21:13)
[2021-08-17] MEDS: Gabapentin 100 MG CAP PO SCH (09:23)
[2021-08-17] MEDS: Aspirin Chewable 81 MG TAB PO SCH (09:24)
[2021-08-17] MEDS: Amiodarone 200 MG TAB PO SCH (09:24)
[2021-08-17] MEDS: Carvedilol 3.125 MG TAB PO SCH ×2 (09:24→21:13)
[2021-08-17] MEDS: Clopidogrel Bisulfate 75 MG TAB PO SCH (09:24)
[2021-08-17] MEDS: predniSONE 5 MG TAB PO SCH (09:25)
[2021-08-17] MEDS: Multivitamin W/ Minerals 1 TAB PO SCH (09:25)
[2021-08-17] MEDS: Colchicine 0.6 MG TAB PO SCH ×2 (09:25→21:13)
[2021-08-17] MEDS: Citalopram 20 MG TAB PO SCH (09:25)
[2021-08-17] MEDS: Furosemide 20 MG TAB PO SCH (09:25)
[2021-08-17] MEDS: glipiZIDE 5 MG TAB PO SCH ×2 (09:26→15:30)
[2021-08-17] MEDS: HumaLOG 300 UNITS/3 ML VIAL SC PRN (17:15)
[2021-08-17] MEDS: Gabapentin 300 MG CAP PO SCH (21:12)
[2021-08-17] MEDS: Atorvastatin Calcium 40 MG TAB PO SCH (21:13)
[2021-08-17] MEDS: Temazepam 15 MG CAP PO PRN (21:13)
[2021-08-17] MEDS: ALPRAZolam 0.5 MG TAB PO PRN (21:23)
[2021-08-18] MEDS: Acetaminophen 325 MG TAB PO PRN ×3 (03:28→20:42)
[2021-08-18] MEDS: Diphenoxylate HCl/Atropine Tablet PO PRN ×2 (03:29→10:58)
[2021-08-18] MEDS: traMADol HCl 50 MG TAB PO PRN ×3 (03:29→20:41)
[2021-08-18] MEDS: Ondansetron ODT 4 MG TAB PO PRN ×3 (03:29→20:40)
[2021-08-18 05:15] LABS: ALT (SGPT) 51 U/L (8-55); AST (SGOT) 40 U/L (5-34); Albumin 3.4 g/dL (3.4-4.8); Alkaline Phosphatase 59 U/L (40-110); Anion Gap 16 mmol/L (10-20); BUN (Urea Nitrogen) 15 mg/dL (8.4-25.7); Bilirubin, Total 0.6 mg/dL (0.2-1.2); Calc. Creatinine Clearance 68 mL/min (70-130); Calcium 8.3 mg/dL (7.8-10.44); Chloride 100 mmol/L (98-107); Estimated GFR 62; Glucose 152 mg/dL (80-115); Potassium 3.5 mmol/L (3.5-5.1); Sodium 138 mmol/L (136-145)
[2021-08-18 05:23] LABS: Carbon Dioxide 26 mmol/L (23-31); Globulin 2.1 g/dL (2.4-3.5); Protein, Total 5.5 g/dL (5.8-8.1)
[2021-08-18] MEDS: Colchicine 0.6 MG TAB PO SCH ×2 (10:24→20:40)
[2021-08-18] MEDS: Gabapentin 300 MG CAP PO SCH ×2 (10:25→20:43)
[2021-08-18] MEDS: Citalopram 20 MG TAB PO SCH (10:26)
[2021-08-18] MEDS: Aspirin Chewable 81 MG TAB PO SCH (10:27)
[2021-08-18] MEDS: Furosemide 20 MG TAB PO SCH (10:27)
[2021-08-18] MEDS: Clopidogrel Bisulfate 75 MG TAB PO SCH (10:27)
[2021-08-18] MEDS: Apixaban 2.5 MG TAB PO SCH ×2 (10:27→20:43)
[2021-08-18] MEDS: Amiodarone 200 MG TAB PO SCH (10:28)
[2021-08-18] MEDS: Multivitamin W/ Minerals 1 TAB PO SCH (10:28)
[2021-08-18] MEDS: predniSONE 5 MG TAB PO SCH (10:29)
[2021-08-18] MEDS: Carvedilol 3.125 MG TAB PO SCH ×2 (10:29→20:41)
[2021-08-18] MEDS: Nystatin Cream 15 GM TUBE TOP SCH ×2 (10:30→20:40)
[2021-08-18] MEDS: glipiZIDE 5 MG TAB PO SCH ×2 (10:56→16:00)
[2021-08-18 13:49] VITALS: BMI 26.2
[2021-08-18] MEDS: ALPRAZolam 0.5 MG TAB PO PRN (16:01)
[2021-08-18] MEDS: HumaLOG 300 UNITS/3 ML VIAL SC PRN (17:13)
[2021-08-18] MEDS: Temazepam 15 MG CAP PO PRN (20:40)
[2021-08-18] MEDS: Atorvastatin Calcium 40 MG TAB PO SCH (20:40)
[2021-08-19] MEDS: Colchicine 0.6 MG TAB PO SCH ×2 (08:18→21:02)
[2021-08-19] MEDS: Furosemide 20 MG TAB PO SCH (08:18)
[2021-08-19] MEDS: Gabapentin 300 MG CAP PO SCH ×2 (08:19→21:02)
[2021-08-19] MEDS: glipiZIDE 5 MG TAB PO SCH ×2 (08:19→16:19)
[2021-08-19] MEDS: Clopidogrel Bisulfate 75 MG TAB PO SCH (08:20)
[2021-08-19] MEDS: Apixaban 2.5 MG TAB PO SCH ×2 (08:20→21:02)
[2021-08-19] MEDS: Citalopram 20 MG TAB PO SCH (08:20)
[2021-08-19] MEDS: Aspirin Chewable 81 MG TAB PO SCH (08:21)
[2021-08-19] MEDS: Carvedilol 3.125 MG TAB PO SCH ×2 (08:21→21:02)
[2021-08-19] MEDS: predniSONE 5 MG TAB PO SCH (08:21)
[2021-08-19] MEDS: Multivitamin W/ Minerals 1 TAB PO SCH (08:21)
[2021-08-19] MEDS: Amiodarone 200 MG TAB PO SCH (08:21)
[2021-08-19] MEDS: Nystatin Cream 15 GM TUBE TOP SCH ×2 (08:22→21:10)
[2021-08-19] MEDS: Acetaminophen 325 MG TAB PO PRN ×3 (08:29→22:26)
[2021-08-19] MEDS: traMADol HCl 50 MG TAB PO PRN ×3 (08:30→22:23)
[2021-08-19] MEDS: Ondansetron ODT 4 MG TAB PO PRN (09:53)
[2021-08-19] MEDS: Diphenoxylate HCl/Atropine Tablet PO PRN ×2 (16:19→22:26)
[2021-08-19] MEDS: Atorvastatin Calcium 40 MG TAB PO SCH (21:02)
[2021-08-19] MEDS: Temazepam 15 MG CAP PO PRN (21:08)
[2021-08-19] MEDS: ALPRAZolam 0.5 MG TAB PO PRN (21:08)
[2021-08-20] MEDS: traMADol HCl 50 MG TAB PO PRN ×2 (04:41→09:32)
[2021-08-20] MEDS: Acetaminophen 325 MG TAB PO PRN ×2 (04:41→09:34)
[2021-08-20] MEDS: Gabapentin 300 MG CAP PO SCH (09:24)
[2021-08-20] MEDS: predniSONE 5 MG TAB PO SCH (09:25)
[2021-08-20] MEDS: Multivitamin W/ Minerals 1 TAB PO SCH (09:26)
[2021-08-20] MEDS: Apixaban 2.5 MG TAB PO SCH (09:26)
[2021-08-20] MEDS: Furosemide 20 MG TAB PO SCH (09:27)
[2021-08-20] MEDS: Ondansetron ODT 4 MG TAB PO PRN (09:28)
[2021-08-20] MEDS: Citalopram 20 MG TAB PO SCH (09:29)
[2021-08-20] MEDS: Clopidogrel Bisulfate 75 MG TAB PO SCH (09:29)
[2021-08-20] MEDS: glipiZIDE 5 MG TAB PO SCH (09:30)
[2021-08-20] MEDS: Aspirin Chewable 81 MG TAB PO SCH (09:31)
[2021-08-20] MEDS: Amiodarone 200 MG TAB PO SCH (09:31)
[2021-08-20] MEDS: Carvedilol 3.125 MG TAB PO SCH (09:32)
[2021-08-20] MEDS: Colchicine 0.6 MG TAB PO SCH (09:32)
[2021-08-20] MEDS: Nystatin Cream 15 GM TUBE TOP SCH (09:38)
[2021-08-20 12:55] VITALS: BP 120/66; TEMP 97.9
== END 2021-08-20 13:00 | disposition home or self-care (01) | DRG 948 ==
LOC: BURMED 10:00
PROVIDERS: ADMIT Family Medicine; ATTEND Family Medicine
DX: R53.81 Other malaise (principal); E11.9 Type 2 diabetes mellitus without complications; I25.10 Atherosclerotic heart disease of native coronary artery without angina pectoris; M54.10 Radiculopathy, site unspecified; M79.606 Pain in leg, unspecified; Z20.822 Contact with and (suspected) exposure to COVID-19; R19.7 Diarrhea, unspecified
CPT/HCPCS: 36415; 36416; 72131; 80053; 80306; 81001; 82565; 85014; 85018; 85049; 87324; 87449; 96372; 99283; J1815; J2930; J7512; Q0162; U0003; U0005

== ENCOUNTER 2021-09-03 04:51 | Emergency (ER) | payer MEDICARE, OTHER ==
[2021-09-03 06:37] LABS: INR-International Normal Ratio 1.2; Prothrombin Time 15.1 sec (12.0-14.7)
[2021-09-03 06:45] LABS: #Basophils 0.1 thou/uL (0.0-0.2); #Eosinphils 0.1 thou/uL (0.0-0.7); #Lymphocytes 0.8 thou/uL (1.20-3.40); #Monocytes 0.5 thou/uL (0.11-0.59); #Neutrophils 5.5 thou/uL (1.40-6.50); %Eosinophils 1.6 % (0.0-10.0); %Lymphocytes 11.6 % (21.0-51.0); %Neutrophils 78.8 % (42.0-75.0); Hemoglobin 11.7 g/dL (14.0-18.0); Mean Corpuscular HGB CONC 32.2 g/dL (32.0-36.0); Mean Corpuscular Hemoglobin 25.2 pg (27.0-31.0); Mean Corpuscular Volume 78.1 fL (78.0-98.0); Mean Platelet Volume 10.6 fL (7.4-10.4); Platelet Count 130 thou/uL (130-400); RBC Distribution Width 17.8 % (11.5-14.5); Red Blood Cell (RBC) Count 4.64 mill/uL (4.70-6.10)
[2021-09-03 06:46] LABS: ALT (SGPT) 50 U/L (8-55); AST (SGOT) 46 U/L (5-34); Albumin 3.7 g/dL (3.4-4.8); Alkaline Phosphatase 70 U/L (40-110); Anion Gap 15 mmol/L (10-20); BUN (Urea Nitrogen) 12 mg/dL (8.4-25.7); Bilirubin, Total 0.6 mg/dL (0.2-1.2); Calc. Creatinine Clearance 0 mL/min (70-130); Calcium 8.9 mg/dL (7.8-10.44); Carbon Dioxide 21 mmol/L (23-31); Chloride 110 mmol/L (98-107); Estimated GFR 70; Globulin 2.3 g/dL (2.4-3.5); Glucose 122 mg/dL (80-115); Sodium 143 mmol/L (136-145)
[2021-09-03] MEDS ORDERED: Ondansetron PF 4 MG/2 ML Vial ONE (07:00)
[2021-09-03] MEDS ORDERED: Morphine 4 MG/ML VIAL ONE (07:00)
[2021-09-03] MEDS ORDERED: HYDROcodone/Acetaminophen 5/325 mg Tablet ONE (08:49)
[2021-09-03] MEDS ORDERED: Potassium Chloride 20 MEQ TAB ONE (09:03)
== END 2021-09-03 09:42 | disposition home or self-care (01) ==
LOC: BURERS 04:51
DX: S22.31XA Fracture of one rib, right side, initial encounter for closed fracture (principal); S70.01XA Contusion of right hip, initial encounter; E87.6 Hypokalemia; E11.40 Type 2 diabetes mellitus with diabetic neuropathy, unspecified; I12.9 Hypertensive chronic kidney disease with stage 1 through stage 4 chronic kidney disease, or unspecified chronic kidney disease; E11.22 Type 2 diabetes mellitus with diabetic chronic kidney disease; N18.9 Chronic kidney disease, unspecified; W19.XXXA Unspecified fall, initial encounter
CPT/HCPCS: 36415; 71250; 80053; 85025; 85610; 96374; 96375; J2270; J2405

== ENCOUNTER 2021-09-16 16:13 | Emergency (ER) | payer MEDICARE, OTHER ==
[2021-09-16] MEDS ORDERED: Iopamidol 370 76% 100 ML VIAL FS ONE (16:14)
[2021-09-16 16:50] LABS: #Basophils 0.1 thou/uL (0.0-0.2); #Eosinphils 0.1 thou/uL (0.0-0.7); #Lymphocytes 0.6 thou/uL (1.20-3.40); #Monocytes 0.7 thou/uL (0.11-0.59); #Neutrophils 4.8 thou/uL (1.40-6.50); %Basophils 0.9 % (0.0-1.0); %Eosinophils 2.3 % (0.0-10.0); %Lymphocytes 9.7 % (21.0-51.0); %Monocytes 10.5 % (0.0-10.0); %Neutrophils 76.5 % (42.0-75.0); Hemoglobin 9.2 g/dL (14.0-18.0); Mean Corpuscular HGB CONC 31.4 g/dL (32.0-36.0); Mean Corpuscular Hemoglobin 24.4 pg (27.0-31.0); Mean Corpuscular Volume 77.7 fL (78.0-98.0); Mean Platelet Volume 7.8 fL (7.4-10.4); Platelet Count 206 thou/uL (130-400); Red Blood Cell (RBC) Count 3.78 mill/uL (4.70-6.10); White Blood Cell (WBC) Count 6.2 thou/uL (4.8-10.8)
[2021-09-16 17:06] LABS: ALT (SGPT) 19 U/L (8-55); AST (SGOT) 23 U/L (5-34); Albumin 3.3 g/dL (3.4-4.8); Alkaline Phosphatase 96 U/L (40-110); Anion Gap 13 mmol/L (10-20); BUN (Urea Nitrogen) 13 mg/dL (8.4-25.7); Bilirubin, Total 0.8 mg/dL (0.2-1.2); Calc. Creatinine Clearance 0 mL/min (70-130); Calcium 8.7 mg/dL (7.8-10.44); Carbon Dioxide 25 mmol/L (23-31); Chloride 108 mmol/L (98-107); Estimated GFR 78; Globulin 2.3 g/dL (2.4-3.5); Glucose 153 mg/dL (80-115); Potassium 3.5 mmol/L (3.5-5.1); Protein, Total 5.6 g/dL (5.8-8.1); Sodium 142 mmol/L (136-145)
[2021-09-16 17:13] LABS: Anisocytosis SLIGHT = 6-15 cells (100X) (0-5/hpf); MDiff Complete? YES; Platelet Morphology Comment Appears Adequate; Polychromasia SLIGHT = 2-3 cells (100X) (0-2/hpf)
[2021-09-16] MEDS ORDERED: Furosemide 40 MG/4 ML VIAL ONE (18:42)
[2021-09-16] MEDS ORDERED: Nitroglycerin 2% Ointment 1 INCH/1 GM Packet ONE (18:42)
[2021-09-16] MEDS ORDERED: Aspirin Chewable 81 MG TAB ONE ×2 (18:44→18:51)
[2021-09-16] MEDS ORDERED: Morphine 4 MG/ML VIAL ONE (21:16)
[2021-09-16] MEDS ORDERED: Ketorolac Tromethamine 30 MG/ML VIAL ONE (22:08)
[2021-09-16] MEDS ORDERED: Gabapentin 300 MG CAP ONE (22:09)
[2021-09-16] MEDS ORDERED: Fentanyl 100 MCG/2 ML VIAL ONE (23:45)
[2021-09-16] MEDS ORDERED: Lidocaine 4% Cream 5 GM TUBE w/ Tegaderm ONE ×2 (23:45→23:49)
[2021-09-16] MEDS ORDERED: Acetaminophen/Codeine 30-300mg Tablet ONE (23:45)
[2021-09-17] MEDS ORDERED: HYDROcodone/Acetaminophen 10/325 mg Tablet ONE (01:04)
[2021-09-17] MEDS ORDERED: Acetaminophen 500 MG TAB ONE (01:32)
[2021-09-17] MEDS ORDERED: HYDROmorphone 0.5 MG/0.5 ML SYRINGE ONE (01:33)
[2021-09-17] MEDS ORDERED: Cyclobenzaprine 10 MG TAB ONE (03:36)
[2021-09-17] MEDS ORDERED: Acetaminophen 325 MG TAB ONE (05:20)
== END 2021-09-17 05:35 | disposition short-term general hospital (02) ==
LOC: BURERS 16:13
DX: S22.31XA Fracture of one rib, right side, initial encounter for closed fracture (principal); J90 Pleural effusion, not elsewhere classified; I13.0 Hypertensive heart and chronic kidney disease with heart failure and stage 1 through stage 4 chronic kidney disease, or unspecified chronic kidney disease; I50.9 Heart failure, unspecified; E11.40 Type 2 diabetes mellitus with diabetic neuropathy, unspecified; N18.9 Chronic kidney disease, unspecified; E78.5 Hyperlipidemia, unspecified; E11.22 Type 2 diabetes mellitus with diabetic chronic kidney disease; W18.30XA Fall on same level, unspecified, initial encounter
CPT/HCPCS: 36415; 71045; 71275; 80053; 83880; 84484; 85025; 85379; 93005; 96374; 96375; J1170; J1885; J1940; J2270; J3010; Q9967

== ENCOUNTER 2022-01-04 04:36 | Emergency (ER) | payer MEDICARE, OTHER ==
[2022-01-04] MEDS ORDERED: Dextrose 50% Abboject 50 ML SYRINGE ONE (04:51)
[2022-01-04] MEDS ORDERED: Sodium Chloride 0.9% 100 ML ONE (05:34)
[2022-01-04] MEDS ORDERED: Morphine 4 MG/ML VIAL ONE (05:58)
[2022-01-04] MEDS ORDERED: Ondansetron ODT 4 MG TAB ONE ×2 (05:59→06:00)
[2022-01-04 06:15] LABS: ALT (SGPT) 30 U/L (8-55); AST (SGOT) 33 U/L (5-34); Acetaminophen Less than 10.0 mcg/mL (10.0-30.0); Albumin 3.8 g/dL (3.4-4.8); Alcohol Less than 10 mg/dL (Less than 10); Alkaline Phosphatase 121 U/L (40-110); Anion Gap 16 mmol/L (10-20); Bilirubin, Total 1.7 mg/dL (0.2-1.2); Calc. Creatinine Clearance 0 mL/min (70-130); Calcium 9.2 mg/dL (7.8-10.44); Carbon Dioxide 21 mmol/L (23-31); Chloride 104 mmol/L (98-107); Estimated GFR 51; Globulin 3.2 g/dL (2.4-3.5); Glucose 78 mg/dL (80-115); Potassium 4.9 mmol/L (3.5-5.1); Salicylate Less than 8.0 mg/dL (15.0-30.0); Sodium 136 mmol/L (136-145)
[2022-01-04 06:22] LABS: SARS-CoV-2 NAA Rapid Test Not Detected (NotDetected)
[2022-01-04 06:31] LABS: BUN (Urea Nitrogen) 15 mg/dL (8.4-25.7)
[2022-01-04 06:35] LABS: Hemoglobin 10.9 g/dL (14.0-18.0); Mean Corpuscular HGB CONC 31.3 g/dL (32.0-36.0); Mean Corpuscular Hemoglobin 22.6 pg (27.0-31.0); Mean Corpuscular Volume 72.2 fl (78.0-98.0); Mean Platelet Volume 11.9 fL (7.4-10.4); Platelet Count 172 10x3/uL (130-400); RBC Distribution Width 18.8 % (11.5-14.5); Red Blood Cell (RBC) Count 4.83 mill/uL (4.70-6.10); White Blood Cell (WBC) Count 18.2 10x3/uL (4.8-10.8)
[2022-01-04 06:36] LABS: #Lymphocytes 0.5 thou/uL (1.20-3.40); #Monocytes 1.3 thou/uL (0.11-0.59); #Neutrophils 16.4 thou/uL (1.40-6.50); %Basophils 0.2 % (0.0-1.0); %Eosinophils 0.1 % (0.0-10.0); %Lymphocytes 2.6 % (21.0-51.0); %Monocytes 6.9 % (0.0-10.0); %Neutrophils 90.2 % (42.0-75.0)
[2022-01-04 06:57] LABS: Bilirubin Small (Negative); Blood, Urine Negative (Negative); Clarity Clear (Clear); Glucose, Urine (Dipstick) Negative (Negative); Ketone, Urine Negative (Negative); Leukocyte Negative (Negative); Nitrite Negative (Negative); Protein, Urine (Dipstick) 30 mg/dL (Neg-Trace); Specific Gravity, Urine 1.025 (1.005-1.030); pH, Urine 5.5 (5.0-9.0)
[2022-01-04 07:07] LABS: Amphetamine Not Detected (NotDetected); Barbiturates Screen Not Detected (NotDetected); Benzodiazepine Screen Detected (NotDetected); Cocaine Metabolite Screen Not Detected (NotDetected); Medtox Control Line Valid? VALID (VALID); Methadone Not Detected (NotDetected); Methamphetamine Not Detected (NotDetected); Opiate Screen Not Detected (NotDetected); Oxycodone Screen Not Detected (NotDetected); Phencyclidine (PCP) Not Detected (NotDetected); THC/Cannabinoid Screen Not Detected (NotDetected); Tricyclic Screen Not Detected (NotDetected)
[2022-01-04 07:10] LABS: Platelet Morphology Comment Appears Adequate; RBC Morphology Normal
[2022-01-04 07:14] LABS: RBC/HPF 0-3 HPF (0-3)
[2022-01-04 07:15] LABS: Bacteria/HPF Rare-Few HPF (None Seen); Squamous Epithelial None Seen HPF (0-3); WBC/HPF 0-3 HPF (0-3)
[2022-01-04 07:18] LABS: MDiff Complete? YES
[2022-01-04] MEDS ORDERED: Ondansetron PF 4 MG/2 ML Vial ONE (08:22)
== END 2022-01-04 13:40 | disposition short-term general hospital (02) ==
LOC: BURERS 04:36
DX: R41.82 Altered mental status, unspecified (principal); I13.0 Hypertensive heart and chronic kidney disease with heart failure and stage 1 through stage 4 chronic kidney disease, or unspecified chronic kidney disease; E11.22 Type 2 diabetes mellitus with diabetic chronic kidney disease; N18.9 Chronic kidney disease, unspecified; E11.649 Type 2 diabetes mellitus with hypoglycemia without coma; E78.5 Hyperlipidemia, unspecified; E11.40 Type 2 diabetes mellitus with diabetic neuropathy, unspecified; Z79.899 Other long term (current) drug therapy; Z79.84 Long term (current) use of oral hypoglycemic drugs; Z79.01 Long term (current) use of anticoagulants; Z20.822 Contact with and (suspected) exposure to COVID-19
CPT/HCPCS: 0240U; 71045; 80053; 80306; 80307; 82962; 83605; 83880; 84484; 85025; 87040; 93005; 94760; 36416; 81003; 81015; 96365; 96367; 96374; 96375; 36415-59; J2270; J2405; J3490; J7999; Q0162

== ENCOUNTER 2022-01-20 16:10 | Emergency (ER) | payer MEDICARE, OTHER | END 2022-01-20 16:56 | disposition home or self-care (01) | LOC: BURERS 16:10 | DX: R07.9 Chest pain, unspecified (principal); E11.40 Type 2 diabetes mellitus with diabetic neuropathy, unspecified; E78.5 Hyperlipidemia, unspecified; I10 Essential (primary) hypertension; Z79.899 Other long term (current) drug therapy; Z79.01 Long term (current) use of anticoagulants | CPT/HCPCS: 99284 ==

== ENCOUNTER 2022-02-06 18:19 | Emergency (ER) | payer MEDICARE, OTHER ==
[2022-02-06] MEDS ORDERED: HYDROcodone/Acetaminophen 10/325 mg Tablet ONE (18:33)
[2022-02-06 19:14] LABS: #Basophils 0.1 thou/uL (0.0-0.2); #Eosinphils 0.3 thou/uL (0.0-0.7); #Lymphocytes 0.9 thou/uL (1.20-3.40); #Monocytes 0.6 thou/uL (0.11-0.59); %Basophils 0.8 % (0.0-1.0); %Eosinophils 3.7 % (0.0-10.0); %Lymphocytes 11.4 % (21.0-51.0); %Neutrophils 76.1 % (42.0-75.0); Hemoglobin 11.2 g/dL (14.0-18.0); Mean Corpuscular HGB CONC 31.3 g/dL (32.0-36.0); Mean Corpuscular Hemoglobin 22.6 pg (27.0-31.0); Mean Platelet Volume 10.1 fL (7.4-10.4); Platelet Count 237 10x3/uL (130-400); RBC Distribution Width 19.9 % (11.5-14.5); Red Blood Cell (RBC) Count 4.97 mill/uL (4.70-6.10); White Blood Cell (WBC) Count 7.9 10x3/uL (4.8-10.8)
[2022-02-06 19:25] LABS: Anion Gap 14 mmol/L (10-20); BUN (Urea Nitrogen) 12 mg/dL (8.4-25.7); Calc. Creatinine Clearance 0 mL/min (70-130); Calcium 8.2 mg/dL (7.8-10.44); Carbon Dioxide 23 mmol/L (23-31); Chloride 109 mmol/L (98-107); Estimated GFR 76; Glucose 178 mg/dL (80-115); Potassium 4.2 mmol/L (3.5-5.1); Sodium 142 mmol/L (136-145)
[2022-02-06] MEDS ORDERED: Ibuprofen 200 MG TAB ONE (20:05)
[2022-02-06 20:15] LABS: Hypochromia MODERATE=16-30 cells (100X) (0-5/hpf); MDiff Complete? YES; Ovalocytes MODERATE= 6-15 cells (100X) (0-1/hpf); Platelet Morphology Comment Appears Adequate; Polychromasia SLIGHT = 2-3 cells (100X) (0-2/hpf); Rouleaux Formation SLIGHT = 1-5 cells (100X) (None Seen)
[2022-02-06] MEDS ORDERED: Bacitracin 1 PK ONE (20:35)
== END 2022-02-06 20:45 | disposition home or self-care (01) ==
LOC: BURERS 18:19
DX: S00.31XA Abrasion of nose, initial encounter (principal); S60.411A Abrasion of left index finger, initial encounter; W19.XXXA Unspecified fall, initial encounter
CPT/HCPCS: 36415; 70450; 70486; 71260; 72125; 80048; 85025; Q9967

== ENCOUNTER 2022-03-09 14:47 | Emergency (ER) | payer MEDICARE, OTHER ==
[2022-03-09 15:18] LABS: #Basophils 0.1 thou/uL (0.0-0.2); #Eosinphils 0.1 thou/uL (0.0-0.7); #Lymphocytes 0.7 thou/uL (1.20-3.40); #Monocytes 0.4 thou/uL (0.11-0.59); #Neutrophils 4.5 thou/uL (1.40-6.50); %Basophils 0.9 % (0.0-1.0); %Eosinophils 1.3 % (0.0-10.0); %Lymphocytes 11.7 % (21.0-51.0); %Monocytes 6.9 % (0.0-10.0); %Neutrophils 79.3 % (42.0-75.0); Hemoglobin 11.3 g/dL (14.0-18.0); Mean Corpuscular HGB CONC 30.3 g/dL (32.0-36.0); Mean Corpuscular Hemoglobin 22.9 pg (27.0-31.0); Mean Corpuscular Volume 75.7 fl (78.0-98.0); Mean Platelet Volume 10.9 fL (7.4-10.4); Platelet Count 193 10x3/uL (130-400); RBC Distribution Width 22.3 % (11.5-14.5); Red Blood Cell (RBC) Count 4.95 mill/uL (4.70-6.10); White Blood Cell (WBC) Count 5.7 10x3/uL (4.8-10.8)
[2022-03-09 15:19] LABS: MDiff Complete? YES
[2022-03-09 15:30] LABS: INR-International Normal Ratio 1.2; Prothrombin Time 16.1 sec (12.0-14.7)
[2022-03-09 15:31] LABS: ALT (SGPT) 32 U/L (8-55); AST (SGOT) 40 U/L (5-34); Alkaline Phosphatase 102 U/L (40-110); Anion Gap 17 mmol/L (10-20); BUN (Urea Nitrogen) 16 mg/dL (8.4-25.7); Calc. Creatinine Clearance 0 mL/min (70-130); Calcium 9.4 mg/dL (7.8-10.44); Carbon Dioxide 25 mmol/L (23-31); Chloride 98 mmol/L (98-107); Estimated GFR 52; Glucose 93 mg/dL (80-115); PTT 39.1 sec (22.9-36.1); Potassium 3.8 mmol/L (3.5-5.1); Sodium 136 mmol/L (136-145)
[2022-03-09 16:18] LABS: Acetaminophen Less than 10.0 mcg/mL (10.0-30.0); Alcohol Less than 10 mg/dL (Less than 10); Salicylate Less than 8.0 mg/dL (15.0-30.0)
[2022-03-09] MEDS ORDERED: Morphine 4 MG/ML VIAL ONE (17:05)
[2022-03-09] MEDS ORDERED: Ondansetron PF 4 MG/2 ML Vial ONE ×2 (17:06→18:53)
[2022-03-09] MEDS ORDERED: HYDROcodone/Acetaminophen 5/325 mg Tablet ONE (18:52)
[2022-03-09 20:36] LABS: Bilirubin Small (Negative); Blood, Urine Negative (Negative); Clarity Clear (Clear); Glucose, Urine (Dipstick) Negative (Negative); Ketone, Urine 40 mg/dL (Negative); Leukocyte Negative (Negative); Nitrite Negative (Negative); Protein, Urine (Dipstick) Negative (Neg-Trace)
[2022-03-09 20:51] LABS: Opiate Screen Detected (NotDetected)
[2022-03-09 20:52] LABS: Amphetamine Not Detected (NotDetected); Barbiturates Screen Not Detected (NotDetected); Benzodiazepine Screen Detected (NotDetected); Cocaine Metabolite Screen Not Detected (NotDetected); Medtox Control Line Valid? VALID (VALID); Methadone Not Detected (NotDetected); Methamphetamine Not Detected (NotDetected); Oxycodone Screen Not Detected (NotDetected); Phencyclidine (PCP) Not Detected (NotDetected); THC/Cannabinoid Screen Not Detected (NotDetected); Tricyclic Screen Not Detected (NotDetected)
== END 2022-03-09 21:09 | disposition short-term general hospital (02) ==
LOC: BURERS 14:47
PROVIDERS: ADMIT Family Medicine
DX: R42 Dizziness and giddiness (principal); R41.82 Altered mental status, unspecified; F39 Unspecified mood [affective] disorder; I12.9 Hypertensive chronic kidney disease with stage 1 through stage 4 chronic kidney disease, or unspecified chronic kidney disease; E11.22 Type 2 diabetes mellitus with diabetic chronic kidney disease; N18.9 Chronic kidney disease, unspecified; E11.40 Type 2 diabetes mellitus with diabetic neuropathy, unspecified; E78.00 Pure hypercholesterolemia, unspecified; I48.91 Unspecified atrial fibrillation; W18.30XA Fall on same level, unspecified, initial encounter; Z95.5 Presence of coronary angioplasty implant and graft
CPT/HCPCS: 36416; 70450; 70496; 70498; 80053; 80306; 80307; 81003; 82140; 84484; 85025; 85610; 85730; 87040; 93005; 94760; 96374; 96375; 96376; 36415-59; J2270; J2405

== ENCOUNTER 2022-04-06 23:06 | Emergency (ER) | payer MEDICARE, OTHER ==
[2022-04-07] MEDS ORDERED: Fentanyl 100 MCG/2 ML VIAL ONE ×2 (00:09→01:26)
[2022-04-07 00:19] LABS: Prothrombin Time 13.7 sec (12.0-14.7)
[2022-04-07 00:20] LABS: PTT 35.3 sec (22.9-36.1)
[2022-04-07 00:29] LABS: Bilirubin Negative (Negative); Blood, Urine Negative (Negative); Clarity Clear (Clear); Glucose, Urine (Dipstick) >=1000 mg/dL (Negative); Ketone, Urine Negative (Negative); Leukocyte Negative (Negative); Nitrite Negative (Negative); Protein, Urine (Dipstick) Negative (Neg-Trace); Specific Gravity, Urine 1.015 (1.005-1.030)
[2022-04-07 00:50] LABS: #Eosinphils 0.3 thou/uL (0.0-0.7); #Lymphocytes 0.6 thou/uL (1.20-3.40); #Monocytes 0.5 thou/uL (0.11-0.59); %Basophils 0.5 % (0.0-1.0); %Eosinophils 5.2 % (0.0-10.0); %Lymphocytes 10.6 % (21.0-51.0); %Monocytes 8.4 % (0.0-10.0); %Neutrophils 75.3 % (42.0-75.0); ALT (SGPT) 36 U/L (8-55); AST (SGOT) 25 U/L (5-34); Alkaline Phosphatase 95 U/L (40-110); Anion Gap 14 mmol/L (10-20); BUN (Urea Nitrogen) 37 mg/dL (8.4-25.7); Bilirubin, Total 0.7 mg/dL (0.2-1.2); Calc. Creatinine Clearance 0 mL/min (70-130); Calcium 9.1 mg/dL (7.8-10.44); Carbon Dioxide 22 mmol/L (23-31); Chloride 108 mmol/L (98-107); Estimated GFR 30; Glucose 185 mg/dL (80-115); Hemoglobin 9.9 g/dL (14.0-18.0); Magnesium 2.1 mg/dL (1.6-2.6); Mean Corpuscular HGB CONC 31.6 g/dL (32.0-36.0); Mean Corpuscular Hemoglobin 24.7 pg (27.0-31.0); Mean Corpuscular Volume 78.1 fl (78.0-98.0); Mean Platelet Volume 11.1 fL (7.4-10.4); Platelet Count 116 10x3/uL (130-400); Potassium 4.2 mmol/L (3.5-5.1); RBC Distribution Width 22.4 % (11.5-14.5); Sodium 140 mmol/L (136-145); White Blood Cell (WBC) Count 5.4 10x3/uL (4.8-10.8)
[2022-04-07] MEDS ORDERED: Morphine 4 MG/ML VIAL ONE ×2 (03:34→05:57)
[2022-04-07] MEDS ORDERED: HYDROcodone/Acetaminophen 10/325 mg Tablet ONE (08:30)
[2022-04-07] MEDS ORDERED: Morphine 2 MG/ML VIAL ONE (10:36)
== END 2022-04-07 10:40 | disposition short-term general hospital (02) ==
LOC: BURERS 23:06
DX: M79.604 Pain in right leg (principal); M79.605 Pain in left leg; M54.50 Low back pain, unspecified; N17.9 Acute kidney failure, unspecified; E11.22 Type 2 diabetes mellitus with diabetic chronic kidney disease; E11.42 Type 2 diabetes mellitus with diabetic polyneuropathy; I13.2 Hypertensive heart and chronic kidney disease with heart failure and with stage 5 chronic kidney disease, or end stage renal disease; N18.9 Chronic kidney disease, unspecified; I50.9 Heart failure, unspecified; I25.10 Atherosclerotic heart disease of native coronary artery without angina pectoris; Z79.01 Long term (current) use of anticoagulants; Z79.899 Other long term (current) drug therapy
CPT/HCPCS: 70450; 71045; 71250; 74177; 80053; 81003; 83605; 83735; 83880; 84484; 85025; 85610; 85730; 93005; 96374; 96375; 96376; J2270; J2272; J3010

== ENCOUNTER 2022-04-26 23:20 | Emergency (ER) | payer MEDICARE, OTHER ==
[2022-04-26 23:42] LABS: Mean Corpuscular HGB CONC 32.5 g/dL (32.0-36.0); Mean Corpuscular Hemoglobin 24.9 pg (27.0-31.0); Mean Corpuscular Volume 76.8 fl (78.0-98.0); Mean Platelet Volume 12.2 fL (7.4-10.4); Platelet Count 112 10x3/uL (130-400); RBC Distribution Width 20.2 % (11.5-14.5); Red Blood Cell (RBC) Count 4.02 mill/uL (4.70-6.10); White Blood Cell (WBC) Count 5.1 10x3/uL (4.8-10.8)
[2022-04-26 23:43] LABS: #Eosinphils 0.2 thou/uL (0.0-0.7); #Lymphocytes 0.7 thou/uL (1.20-3.40); #Monocytes 0.4 thou/uL (0.11-0.59); #Neutrophils 3.8 thou/uL (1.40-6.50); %Eosinophils 3.4 % (0.0-10.0); %Lymphocytes 13.9 % (21.0-51.0); %Monocytes 7.5 % (0.0-10.0); %Neutrophils 74.2 % (42.0-75.0)
[2022-04-26] MEDS ORDERED: Morphine 2 MG/ML VIAL ONE (23:45)
[2022-04-26] MEDS ORDERED: Nitroglycerin 2% Ointment 1 INCH/1 GM Packet ONE (23:46)
[2022-04-26] MEDS ORDERED: Morphine 4 MG/ML VIAL ONE (23:46)
[2022-04-26] MEDS ORDERED: Aspirin Chewable 81 MG TAB ONE (23:46)
[2022-04-27] LABS: ALT (SGPT) 63 U/L (8-55); AST (SGOT) 46 U/L (5-34); Albumin 4.1 g/dL (3.4-4.8); Alkaline Phosphatase 108 U/L (40-110); Anion Gap 17 mmol/L (10-20); BUN (Urea Nitrogen) 61 mg/dL (8.4-25.7); Bilirubin, Total 0.6 mg/dL (0.2-1.2); Calc. Creatinine Clearance 0 mL/min (70-130); Calcium 8.9 mg/dL (7.8-10.44); Carbon Dioxide 21 mmol/L (23-31); Chloride 104 mmol/L (98-107); Estimated GFR 36; Glucose 356 mg/dL (80-115); Potassium 4.9 mmol/L (3.5-5.1); Protein, Total 7.1 g/dL (5.8-8.1); Sodium 137 mmol/L (136-145)
[2022-04-27] MEDS ORDERED: Nitroglycerin 50 MG/250 ML BOT 250 ML ONE (00:02)
[2022-04-27] MEDS ORDERED: Furosemide 40 MG/4 ML VIAL ONE (00:48)
[2022-04-27] MEDS ORDERED: Morphine 4 MG/ML VIAL ONE (01:03)
== END 2022-04-27 01:15 | disposition short-term general hospital (02) ==
LOC: BURERS 23:20
DX: I13.0 Hypertensive heart and chronic kidney disease with heart failure and stage 1 through stage 4 chronic kidney disease, or unspecified chronic kidney disease (principal); I50.9 Heart failure, unspecified; N18.9 Chronic kidney disease, unspecified; E11.22 Type 2 diabetes mellitus with diabetic chronic kidney disease; E11.40 Type 2 diabetes mellitus with diabetic neuropathy, unspecified; E78.5 Hyperlipidemia, unspecified; N17.9 Acute kidney failure, unspecified; Z79.899 Other long term (current) drug therapy; Z79.01 Long term (current) use of anticoagulants; Z79.84 Long term (current) use of oral hypoglycemic drugs
CPT/HCPCS: 71045; 80053; 83880; 84484; 85025; 93005; 96374; 96375; 96376; J1940; J2270; J2272

== ENCOUNTER 2022-09-21 15:46 | Emergency (ER) | payer MEDICARE, OTHER ==
[2022-09-21] MEDS ORDERED: Nitroglycerin 0.4 MG TAB 1 EACH ONE (16:08)
[2022-09-21 16:25] LABS: ALT (SGPT) 50 U/L (8-55); AST (SGOT) 49 U/L (5-34); Albumin 4.3 g/dL (3.4-4.8); Alkaline Phosphatase 89 U/L (40-110); Anion Gap 17 mmol/L (10-20); BUN (Urea Nitrogen) 28 mg/dL (8.4-25.7); Bilirubin, Total 1.3 mg/dL (0.2-1.2); Calc. Creatinine Clearance 0 mL/min (70-130); Calcium 9.6 mg/dL (7.8-10.44); Carbon Dioxide 30 mmol/L (23-31); Chloride 96 mmol/L (98-107); Estimated GFR 34; Globulin 2.7 g/dL (2.4-3.5); Glucose 170 mg/dL (80-115); Potassium 4.3 mmol/L (3.5-5.1); Sodium 139 mmol/L (136-145)
[2022-09-21 16:28] LABS: #Eosinphils 0.2 thou/uL (0.0-0.7); #Lymphocytes 0.8 thou/uL (1.20-3.40); #Monocytes 0.4 thou/uL (0.11-0.59); #Neutrophils 3.5 thou/uL (1.40-6.50); %Basophils 0.8 % (0.0-1.0); %Eosinophils 3.7 % (0.0-10.0); %Monocytes 8.6 % (0.0-10.0); Anisocytosis SLIGHT = 6-15 cells (100X) (0-5/hpf); Hematocrit 41.3 % (42.0-52.0); Hemoglobin 12.7 g/dL (14.0-18.0); Hypochromia SLIGHT = 6-15 cells (100X) (0-5/hpf); Large Platelets SLIGHT (None Seen); MDiff Complete? YES; Mean Corpuscular HGB CONC 30.7 g/dL (32.0-36.0); Mean Corpuscular Hemoglobin 23.6 pg (27.0-31.0); Mean Corpuscular Volume 76.8 fl (78.0-98.0); Mean Platelet Volume 12.1 fL (7.4-10.4); Microcytosis SLIGHT = 6-15 cells (100X) (0-5/hpf); Ovalocytes SLIGHT = 2-5 cells (100X) (0-1/hpf); Platelet Adequacy Comment Appears Decreased; Platelet Count 100 10x3/uL (130-400); Poikilocytosis SLIGHT = 6-15 cells (100X) (0-5/hpf); RBC Distribution Width 16.2 % (11.5-14.5); Red Blood Cell (RBC) Count 5.37 mill/uL (4.70-6.10); Tear Drops SLIGHT = 2-5 cells (100X) (0-1/hpf); White Blood Cell (WBC) Count 4.9 10x3/uL (4.8-10.8)
[2022-09-21] MEDS ORDERED: Morphine 4 MG/ML VIAL ONE ×2 (17:38→20:45)
[2022-09-21] MEDS ORDERED: Nitroglycerin 2% Ointment 1 INCH/1 GM Packet ONE (17:45)
[2022-09-21 22:12] LABS: Troponin I 0.023 ng/mL (< 0.028)
== END 2022-09-21 22:45 | disposition short-term general hospital (02) ==
LOC: BURERS 15:46
DX: R26.2 Difficulty in walking, not elsewhere classified (principal); R07.9 Chest pain, unspecified; E11.40 Type 2 diabetes mellitus with diabetic neuropathy, unspecified; E11.22 Type 2 diabetes mellitus with diabetic chronic kidney disease; I12.9 Hypertensive chronic kidney disease with stage 1 through stage 4 chronic kidney disease, or unspecified chronic kidney disease; N18.9 Chronic kidney disease, unspecified; Z79.899 Other long term (current) drug therapy; Z79.84 Long term (current) use of oral hypoglycemic drugs
CPT/HCPCS: 36415; 70450; 80053; 82550; 83880; 84484; 85025; 85652; 86141; 93005; 96374; 96376; J2270; Q9967

== ENCOUNTER 2022-10-08 19:16 | Emergency (ER) | payer MEDICARE, OTHER ==
[2022-10-08] MEDS ORDERED: Ibuprofen 800 MG TAB ONE (19:45)
[2022-10-08 20:28] LABS: Troponin I 0.016 ng/mL (< 0.028)
[2022-10-08 20:29] LABS: Carbon Dioxide 20 mmol/L (23-31); Chloride 106 mmol/L (98-107); Potassium 4.2 mmol/L (3.5-5.1); Sodium 138 mmol/L (136-145)
[2022-10-08 20:30] LABS: Albumin 3.7 g/dL (3.4-4.8); Anion Gap 16 mmol/L (10-20); BUN (Urea Nitrogen) 20 mg/dL (8.4-25.7); Calc. Creatinine Clearance 0 mL/min (70-130); Calcium 8.5 mg/dL (7.6-10.4); Estimated GFR 55; Globulin 2.2 g/dL (2.4-3.5); Glucose 169 mg/dL (83-110); Protein, Total 5.9 g/dL (5.8-8.1)
[2022-10-08 20:31] LABS: ALT (SGPT) 46 U/L (8-55); AST (SGOT) 78 U/L (5-34); Alkaline Phosphatase 87 U/L (40-110)
[2022-10-08 20:32] LABS: Hematocrit 38.5 % (42.0-52.0); Hemoglobin 12.1 g/dL (14.0-18.0); Mean Corpuscular HGB CONC 31.4 g/dL (32.0-36.0); Mean Corpuscular Hemoglobin 24.9 pg (27.0-31.0); Mean Corpuscular Volume 79.5 fl (78.0-98.0); RBC Distribution Width 18.8 % (11.5-14.5); Red Blood Cell (RBC) Count 4.84 mill/uL (4.70-6.10); White Blood Cell (WBC) Count 4.6 10x3/uL (4.8-10.8)
[2022-10-08 20:33] LABS: #Lymphocytes 0.2 thou/uL (1.20-3.40); #Monocytes 0.2 thou/uL (0.11-0.59); #Neutrophils 4.1 thou/uL (1.40-6.50); %Basophils 0.9 % (0.0-1.0); %Eosinophils 0.6 % (0.0-10.0); %Lymphocytes 4.6 % (21.0-51.0); %Monocytes 5.2 % (0.0-10.0); %Neutrophils 88.8 % (42.0-75.0); Anisocytosis SLIGHT = 6-15 cells (100X) (0-5/hpf); Mean Platelet Volume 11.3 fL (7.4-10.4); Platelet Count 98 10x3/uL (130-400)
[2022-10-08 20:34] LABS: Platelet Adequacy Comment Appears Decreased
[2022-10-08 20:46] LABS: MDiff Complete? YES
[2022-10-08 20:53] LABS: Bilirubin Negative (Negative); Blood, Urine Large (Negative); Clarity Cloudy (Clear); Glucose, Urine (Dipstick) 500 mg/dL (Negative); Ketone, Urine 15 mg/dL (Negative); Leukocyte Trace (Negative); Nitrite Negative (Negative); Protein, Urine (Dipstick) > or equal to 300 mg/dL (Neg-Trace)
[2022-10-08 21:00] LABS: Bacteria/HPF 1+ HPF (None Seen); CAUTI Indications for Culture Dysuria,urgency,freq; Squamous Epithelial 0-3 HPF (0-3); WBC/HPF 21-50 HPF (0-3)
[2022-10-08 21:01] LABS: Urine Culture Reflex Yes Yes
[2022-10-08] MEDS ORDERED: cefTRIAXone (ROCEPHIN) 1 GM VIAL ONE (21:10)
== END 2022-10-08 22:09 | disposition home or self-care (01) ==
LOC: BURERS 19:16
DX: N10 Acute pyelonephritis (principal); E11.40 Type 2 diabetes mellitus with diabetic neuropathy, unspecified; I12.9 Hypertensive chronic kidney disease with stage 1 through stage 4 chronic kidney disease, or unspecified chronic kidney disease; E11.22 Type 2 diabetes mellitus with diabetic chronic kidney disease; N18.9 Chronic kidney disease, unspecified; I48.91 Unspecified atrial fibrillation; E78.5 Hyperlipidemia, unspecified; Z79.01 Long term (current) use of anticoagulants; Z79.899 Other long term (current) drug therapy; Z95.5 Presence of coronary angioplasty implant and graft
CPT/HCPCS: 36415; 51702; 80053; 81001; 83605; 84484; 85025; 87040; 87077; 87086; 87186; 96361; 96365; J0696

== ENCOUNTER 2023-11-21 11:45 | Emergency (ER) | payer MEDICARE, OTHER ==
[2023-11-21] MEDS ORDERED: Morphine 2 MG/ML VIAL ONE (12:35)
[2023-11-21] MEDS ORDERED: Ondansetron PF 4 MG/2 ML Vial ONE (12:35)
[2023-11-21] MEDS ORDERED: Morphine 4 MG/ML VIAL ONE ×2 (12:35→13:39)
[2023-11-21 12:43] LABS: #Eosinophils 0.1 thou/uL (0.0-0.7); #Lymphocytes 0.6 thou/uL (1.20-3.40); #Monocytes 0.4 thou/uL (0.11-0.59); %Basophils 1.2 % (0.0-1.0); %Eosinophils 3.2 % (0.0-10.0); %Monocytes 8.6 % (0.0-10.0); Hematocrit 51.3 % (42.0-52.0); Hemoglobin 16.1 g/dL (14.0-18.0); Mean Corpuscular HGB CONC 31.4 g/dL (32.0-36.0); Mean Corpuscular Hemoglobin 29.1 pg (27.0-31.0); Mean Corpuscular Volume 92.9 fl (78.0-98.0); Mean Platelet Volume 11.4 fL (7.4-10.4); Platelet Adequacy Comment Appears Decreased; Platelet Count 107 10x3/uL (130-400); RBC Distribution Width 14.2 % (11.5-14.5); Red Blood Cell (RBC) Count 5.52 mill/uL (4.70-6.10); White Blood Cell (WBC) Count 4.2 10x3/uL (4.8-10.8)
[2023-11-21 12:55] LABS: ALT (SGPT) 59 U/L (8-55); AST (SGOT) 44 U/L (5-34); Albumin 3.7 g/dL (3.4-4.8); Alkaline Phosphatase 78 U/L (40-110); Anion Gap 18 mmol/L (10-20); BUN (Urea Nitrogen) 26 mg/dL (8.4-25.7); Bilirubin, Total 1.4 mg/dL (0.2-1.2); Calc. Creatinine Clearance 0 mL/min (70-130); Calcium 9.2 mg/dL (7.8-10.44); Carbon Dioxide 19 mmol/L (23-31); Chloride 105 mmol/L (98-107); Estimated GFR 42; Globulin 3.2 g/dL (2.4-3.5); Glucose 159 mg/dL (83-110); Lipase 18 U/L (8-78); Potassium 3.8 mmol/L (3.5-5.1); Protein, Total 6.9 g/dL (5.8-8.1); Sodium 138 mmol/L (136-145)
[2023-11-21] MEDS ORDERED: Dicyclomine 20 MG TAB ONE (15:10)
== END 2023-11-21 15:26 | disposition home or self-care (01) ==
LOC: BURERS 11:45
DX: R11.10 Vomiting, unspecified (principal); R10.9 Unspecified abdominal pain; E11.40 Type 2 diabetes mellitus with diabetic neuropathy, unspecified; E11.22 Type 2 diabetes mellitus with diabetic chronic kidney disease; I12.9 Hypertensive chronic kidney disease with stage 1 through stage 4 chronic kidney disease, or unspecified chronic kidney disease; N18.9 Chronic kidney disease, unspecified; I48.91 Unspecified atrial fibrillation; I25.10 Atherosclerotic heart disease of native coronary artery without angina pectoris; Z95.5 Presence of coronary angioplasty implant and graft; Z87.891 Personal history of nicotine dependence
CPT/HCPCS: 36415; 74176; 80053; 83605; 83690; 85025; 93005; 96374; 96375; 96376; J2272; J2405

== ENCOUNTER 2024-03-04 11:35 | Emergency (ER) | payer MEDICARE, OTHER ==
[2024-03-04 12:30] LABS: #Basophils 0.1 thou/uL (0.0-0.2); #Eosinophils 0.2 thou/uL (0.0-0.7); #Lymphocytes 0.5 thou/uL (1.20-3.40); #Monocytes 0.4 thou/uL (0.11-0.59); #Neutrophils 4.3 thou/uL (1.40-6.50); %Basophils 1.1 % (0.0-1.0); %Eosinophils 2.8 % (0.0-10.0); %Lymphocytes 9.7 % (21.0-51.0); %Monocytes 7.7 % (0.0-10.0); %Neutrophils 78.7 % (42.0-75.0); Hematocrit 45.7 % (42.0-52.0); Hemoglobin 15.4 g/dL (14.0-18.0); Mean Corpuscular HGB CONC 33.7 g/dL (32.0-36.0); Mean Corpuscular Volume 89.2 fl (78.0-98.0); Mean Platelet Volume 11.5 fL (7.4-10.4); Platelet Adequacy Comment Appears Decreased; Platelet Count 82 10x3/uL (130-400); RBC Distribution Width 13.2 % (11.5-14.5); Red Blood Cell (RBC) Count 5.13 mill/uL (4.70-6.10); White Blood Cell (WBC) Count 5.5 10x3/uL (4.8-10.8)
[2024-03-04 12:33] LABS: MDiff Complete? YES
[2024-03-04 12:35] LABS: ALT (SGPT) 27 U/L (8-55); AST (SGOT) 27 U/L (5-34); Alkaline Phosphatase 67 U/L (40-110); Anion Gap 15 mmol/L (10-20); BUN (Urea Nitrogen) 19 mg/dL (8.4-25.7); Bilirubin, Total 1.2 mg/dL (0.2-1.2); Calc. Creatinine Clearance 0 mL/min (70-130); Calcium 9.7 mg/dL (7.8-10.44); Carbon Dioxide 20 mmol/L (23-31); Chloride 109 mmol/L (98-107); Estimated GFR 51; Globulin 3.8 g/dL (2.4-3.5); Glucose 134 mg/dL (83-110); Potassium 4.8 mmol/L (3.5-5.1); Protein, Total 7.8 g/dL (5.8-8.1); Sodium 139 mmol/L (136-145)
[2024-03-04] MEDS ORDERED: fentaNYL 50 mcg/mL 1 mL Vial ONE (12:45)
[2024-03-04] MEDS ORDERED: Dexamethasone 10 MG/ML VIAL ONE (13:55)
[2024-03-04] MEDS ORDERED: Morphine 4 MG/ML VIAL ONE ×3 (13:55→20:18)
[2024-03-04] MEDS ORDERED: tiZANidine HCl 4 MG TAB PO SCH (14:15)
== END 2024-03-04 21:10 | disposition home or self-care (01) ==
LOC: BURERS 11:35
DX: M54.41 Lumbago with sciatica, right side (principal); G89.29 Other chronic pain; D69.6 Thrombocytopenia, unspecified; I13.0 Hypertensive heart and chronic kidney disease with heart failure and stage 1 through stage 4 chronic kidney disease, or unspecified chronic kidney disease; I50.9 Heart failure, unspecified; N18.9 Chronic kidney disease, unspecified; E11.22 Type 2 diabetes mellitus with diabetic chronic kidney disease; I48.91 Unspecified atrial fibrillation; E78.5 Hyperlipidemia, unspecified; Z87.891 Personal history of nicotine dependence
CPT/HCPCS: 72131; 80053; 85025; 96374; 96375; 96376; J1100; J2270; J3010

== ENCOUNTER → 2024-10-24 | Day surgery (SDC) | payer MEDICARE, OTHER ==
[~2024-10-24] MED LIST changes: -Iopamidol 370 76% 100 ML VIAL ONE; +Rabies Vaccine Human 2.5 UNITS VIAL ONE
== END ==
LOC: BUR/OP 14:55
PROVIDERS: ATTEND Internal Medicine
DX: Z29.14 Encounter for prophylactic rabies immune globulin (principal)
CPT/HCPCS: 90675

== ENCOUNTER → 2024-10-31 | Day surgery (SDC) | payer MEDICARE, OTHER ==
[2024-10-31 19:03] VITALS: BP 94/59; TEMP 97.7
== END ==
LOC: BUR/OP 18:27
PROVIDERS: ATTEND Internal Medicine
DX: Z29.14 Encounter for prophylactic rabies immune globulin (principal)
CPT/HCPCS: 90675

== ENCOUNTER 2024-12-15 23:54 | Emergency (ER) | payer MEDICARE ==
[2024-12-16 00:36] LABS: ALT (SGPT) 37 U/L (Less than 45); AST (SGOT) 35 U/L (11-34); Albumin 4.0 g/dL (3.1-4.5); Alkaline Phosphatase 71 U/L (40-110); Anion Gap 17 mmol/L (10-20); BUN (Urea Nitrogen) 26 mg/dL (8.4-25.7); Bilirubin, Total 0.8 mg/dL (0.3-1.2); Calc. Creatinine Clearance 0 mL/min (70-130); Calcium 9.2 mg/dL (7.8-10.44); Carbon Dioxide 26 mmol/L (23-31); Chloride 103 mmol/L (98-107); Globulin 2.9 g/dL (2.4-3.5); Glucose 200 mg/dL (83-110); Potassium 3.6 mmol/L (3.5-5.1); Sodium 142 mmol/L (136-145)
[2024-12-16 00:37] LABS: Hematocrit 37.3 % (42.0-52.0); Hemoglobin 13.9 g/dL (14.0-18.0); MDiff Complete? YES; Mean Corpuscular Hemoglobin 31.1 pg (27.0-31.0); Mean Corpuscular Volume 83.4 fl (78.0-98.0); Platelet Adequacy Comment Appears Decreased; Platelet Count 76 10x3/uL (130-400); Red Blood Cell (RBC) Count 4.47 mill/uL (4.70-6.10); White Blood Cell (WBC) Count 4.3 10x3/uL (4.8-10.8)
[2024-12-16 00:38] LABS: Troponin I 0.029 ng/mL (< 0.028)
== END 2024-12-16 02:23 | disposition short-term general hospital (02) ==
LOC: BURERS 23:54
DX: R07.2 Precordial pain (principal); R79.89 Other specified abnormal findings of blood chemistry; I48.20 Chronic atrial fibrillation, unspecified; R06.02 Shortness of breath; I13.0 Hypertensive heart and chronic kidney disease with heart failure and stage 1 through stage 4 chronic kidney disease, or unspecified chronic kidney disease; I50.9 Heart failure, unspecified; E11.22 Type 2 diabetes mellitus with diabetic chronic kidney disease; N18.9 Chronic kidney disease, unspecified; E11.42 Type 2 diabetes mellitus with diabetic polyneuropathy; E03.9 Hypothyroidism, unspecified; E78.5 Hyperlipidemia, unspecified; Z87.891 Personal history of nicotine dependence; Z79.84 Long term (current) use of oral hypoglycemic drugs; Z79.890 Hormone replacement therapy; Z79.899 Other long term (current) drug therapy
CPT/HCPCS: 71045; 80053; 83880; 84484; 85025; 93005; 94760; 96374; J2270